=== PATIENT | female | born 1935 | race Caucasian/White ===

== ENCOUNTER 2017-06-12 15:46 | Inpatient (IN) | payer MEDICARE, OTHER ==
[2017-06-12] MEDS ORDERED: NS 0.9% 1000 ML* 1,000 ML IV ONE (15:49)
--- NOTE | 2017-06-12 16:07 | RAD ---
INDICATION: Confusion and slurred speech COMPARISON: None. TECHNIQUE: Contiguous axial sections of the brain were obtained from the skull base to the vertex without contrast. FINDINGS: The ventricles, cisterns and sulci exhibit mild involutional changes. There is mild to moderate periventricular and subcortical white matter hypoattenuation most consistent with chronic microvascular disease in a patient this age. There is potentially loss of wadsworth-white matter differentiation involving the right temporoparietal lobe (image 14 of 32). Elsewhere the wadsworth-white matter differentiation is adequately maintained and there is no sulcal effacement. No significant focal abnormality or mass effect is present. There is no evidence for intracranial hemorrhage. No significant focal osseous abnormality is present. The visualized portion of the paranasal sinuses and mastoid air cells appear clear. IMPRESSION: 1. No acute intracranial hemorrhage identified. 2. Potential loss of wadsworth-white matter differentiation at the right temporoparietal lobe. Without prior brain imaging for comparison determination of chronicity on a noncontrast CT of the brain is limited. 3. Additional age-appropriate chronic findings described above. Findings were reported Dr. Johnson over the telephone at 1603 hours on June 12, 2017
[2017-06-12] MEDS ORDERED: Labetalol IV* 5 MG/ML 20 ML VIAL IV PUSH ONE ×3 (16:11→19:19)
[2017-06-12 16:18] LABS: Hematocrit 28 % (35-47); Mean Corpuscular HGB Conc 33 g/dl (31-36); Mean Corpuscular Hemoglobin 33 pg (27-31); Mean Corpuscular Volume 102 fL (80-97); Mean Platelet Volume 7 um3 (7.4-10.4); Red Blood Count 2.71 10^6/ul (4.0-5.4); Red Cell Distribution Width 15 % (10.5-15); White Blood Count 7.8 10^3/ul (3.5-10.8)
[2017-06-12 16:32] LABS: Albumin 3.6 g/dL (3.2-5.2); EGFR African American 82.8 (>60); EGFR Non-African American 64.4 (>60); Globulin 2.7 g/dL (2-4); Potassium 4.4 mmol/L (3.5-5.0); Total Bilirubin 0.2 mg/dL (0.2-1.0); Total Protein 6.3 g/dL (6.4-8.9)
[2017-06-12 16:34] LABS: Troponin I 0.03 ng/mL (<0.04)
[2017-06-12] MEDS ORDERED: Alteplase* 100 MG VIAL IV ONE ×2 (16:45)
[2017-06-12] MEDS ORDERED: Iohexol 350* (CONTRAST) 500 ML MDV IV ONE (17:06)
--- NOTE | 2017-06-12 17:20 | RAD ---
INDICATION: Acute neurologic changes COMPARISON: None. TECHNIQUE: Single AP portable view of the chest was obtained. FINDINGS: Image quality is compromised due to the relative inferiority of a portable chest x-ray. The heart and mediastinum exhibit normal size and contour. There is faint calcification overlying the arch of the aorta. The lungs appear hyperaerated and the AP view. Otherwise the lungs are grossly clear. There is no evidence of a large pleural effusion. Visualized bones are normal for the patient's age. IMPRESSION: Appearance of the lungs is consistent with chronic obstructive pulmonary disease without radiographically acute cardiopulmonary abnormality.
--- NOTE | 2017-06-12 17:56 | RAD ---
CPT II: CPT II Codes: 3100F INDICATION: Left-sided weakness and difficulty was each COMPARISON: Same day CT of the brain TECHNIQUE: A CT angiogram of the head and neck was performed with 80 cc of Omnipaque 350. Contiguous axial sections were obtained from the thoracic inlet through the [place]. Images were reconstructed in the sagittal, coronal planes and in a 3-D volume rendered format. The distal cervical internal carotid artery diameter is used as the denominater for stenosis measurement. CTA NECK: There are severe calcified atherosclerosis at the arch of the aorta and the origins of the branch arteries. The common and internal carotid arteries are patent without hemodynamically significant stenosis. Surgical material is seen overlying the bilateral carotid bulbs consistent with the patient's reported history of carotid endarterectomies. Right: Immediately below the bifurcation the common carotid artery measures 7 mm in diameter and the internal carotid artery measures 7 mm in diameter above the bifurcation yielding 0% degree stenosis. Left: Immediately below the bifurcation the common carotid artery measures 6 mm in diameter and the internal carotid artery measures 6 mm in diameter above the bifurcation yielding 0% degree stenosis. The vertebral arteries are patent without gross abnormality. The right vertebral artery is diminutive relative to the left but retains patency throughout its entire length. CTA of the brain: The internal carotid, anterior and middle cerebral arteries appear are patent without high grade stenosis or occlusion. The vertebral, basilar and posterior cerebral arteries appear patent without high grade stenosis or occlusion. The left posterior communicating artery appears to be absent causing the [place] to be incomplete. No focal luminal filling defect, aneurysm or vascular malformation is seen. The lung apices exhibit advanced centrilobular emphysematous changes. IMPRESSION: 1. No hemodynamically significant stenosis at either carotid bulb status post carotid endarterectomies. 2. No focal filling defect in the arterial vasculature of the head and neck.
[2017-06-12 18:51] LABS: Urine Bacteria Absent (Absent); Urine Bilirubin Negative (Negative); Urine Glucose Negative (Negative); Urine Nitrite Negative (Negative)
--- NOTE | 2017-06-12 18:55 | RAD ---
INDICATION: Left-sided weakness and difficulty with speech. COMPARISON: Same day CT of the brain acquired at 1547 hours TECHNIQUE: Contiguous axial sections of the brain were obtained from the skull base to the vertex without contrast. FINDINGS: The ventricles, cisterns and sulci exhibit mild involutional changes. Similar to the previous CT of the brain, there is loss of wadsworth-white matter differentiation at the right temporoparietal lobe. Immediately external to the right temporal lobe there is an irregular hypodense area measuring 12 mm in greatest axial dimension, previously 10 mm. According to the patient's clinical presentation and now with a prior head CT with comparison the potential for extra-axial hemorrhage is considered. No significant focal osseous abnormality is present. The visualized portion of the paranasal sinuses and mastoid air cells appear clear. IMPRESSION: Again seen is loss of wadsworth-white matter differentiation at the right temporoparietal lobe similar in appearance to the previous CT of the brain. Since the prior CT there has been enlargement of a hyperdense subdural area measuring 12 mm in greatest axial dimension, previously 10 mm. On the prior CT examination it appeared this density was retained cortex as part of an evolving infarction, but the increase in size of the hyperattenuation now with 2 CTs to compare is concerning for extra-axial hemorrhage. Findings were discussed with Saturnino Johnson over the telephone at 1840 hours on June 12, 2017.
--- NOTE | 2017-06-12 19:28 | ED ---
Jannie Reece Auryana, scribed for Saturnino Johnson MD on 06/12/17 at 1552 . Neurological HPI - HPI Summary HPI Summary: 81 year old female presents with possible stroke starting this afternoon. Per EMS, patient was getting the mail and paper today when she dropped the paper/ mail and called for her tenant. EMS received the call at 14:40. Patient reports left sided facial droop and left sided weakness but on EMS arrival, report weakness and droop not present but that she did have difficult with speech. Patient denies any blurry vision, headache, chest pain or any SOB. She is on ASA and Plavix. PMHx is significant for TIA (1 year ago), and carotid endarterectomy x2. No history of DM- glucose 117 on arrival via finger stick. - History of Current Complaint Stated Complaint: STROKE Time Seen by Provider: 06/12/17 15:48 Last Known Well Date: 06/12/17 14:40 Hx Obtained From: Patient, EMS Hx Last Menstrual Period: n/a Onset/Duration: Sudden Onset, Started hours ago Timing: Constant Onset Severity: Moderate Current Severity: Moderate Neurological Deficit Location: Facial, LUE, LLE Associated Signs and Symptoms: Positive: Weakness, Impaired Speech. Negative: Visual Changes, Headache, Chest Pain, Shortness of Breath Similar Episode/Dx as: history of TIA Related Hx: ASA - Allergy/Home Medications Allergies/Adverse Reactions: Allergies Allergy/AdvReac Type Severity Reaction Status Date / Time No Known Allergies Allergy Verified 06/12/17 16:03 PMH/Surg Hx/FS Hx/Imm Hx Neurological History: Reports: Hx Transient Ischemic Attacks (TIA) - Surgical History Surgery Procedure, Year, and Place: carotid endarterectomy x2 - Family History Known Family History: Positive: Cardiac Disease, Diabetes, Other - stroke - father at 63; CHF Negative: Hypertension - Social History Occupation: Retired Alcohol Use: None Hx Substance Use: No Substance Use Type: Reports: None Hx Tobacco Use: No Smoking Status (MU): Never Smoked Tobacco Review of Systems Constitutional: Negative Negative: Fever Eyes: Negative Negative: Blurred Vision, Diplopia ENT: Negative Cardiovascular: Negative Negative: Chest Pain Respiratory: Negative Negative: Shortness Of Breath Gastrointestinal: Negative Genitourinary: Negative Musculoskeletal: Negative Skin: Negative Neurological: Other - left sided facial droop and left sided weakness Positive: Slurred Speech - speech difficulties. Negative: Headache Psychological: Normal All Other Systems Reviewed And Are Negative: Yes Physical Exam - Summary Physical Exam Summary: The patient is well-nourished in no acute distress and in no acute pain. The skin is warm and dry and skin color reflects adequate perfusion. HEENT: The head is normocephalic and atraumatic. The pupils are equal and reactive. The conjunctivae are clear and without drainage. Nares are patent and without drainage. Mouth reveals moist mucous membranes and the throat is without erythema and exudate. The external ears are intact. The ear canals are patent and without drainage. The tympanic membranes are intact. There is left sided facial droop. No ptosis present. Neck is supple with full range of motion and non-tender. There are no carotid bruits. There is no neck vein distension. Respiratory: Chest is non-tender. Lungs are clear to auscultation and breath sounds are symmetrical and equal. Cardiovascular: Heart is regular rate and rhythm. There is no murmur or rub auscultated. There is no peripheral edema and pulses are symmetrical and equal. Abdomen: The abdomen is soft and non-tender. There are normal bowel sounds heard in all four quadrants and there is no organomegaly palpated. Musculoskeletal: There is no back pain noted. Extremities are non-tender with full range of motion. There is good capillary refill. There is no peripheral edema or calf tenderness elicited. Neurological: Patient is alert and oriented to person, place and time. The patient has motor weakness in the left upper extremity > right upper extremity. There is a (+) babinski on the left and (+) pronator drift on the left. Heel to toe is normal. Finger to nose is slightly off on the left. Deep tendon reflexes are symmetrical and equal in all four extremities. SEE NIH SCALE FOR FURTHER ASSESSMENT. Psychiatric: The patient has an appropriate affect and does not exhibit any anxiety or depression. Triage Information Reviewed: Yes Vital Signs On Initial Exam: Initial Vitals Temp Pulse Resp BP Pulse Ox 99.6 F 81 18 206/66 99 06/12/17 15:55 06/12/17 15:55 06/12/17 15:55 06/12/17 15:55 06/12/17 15:55 Vital Signs Reviewed: Yes Diagnostics - Vital Signs Vital Signs Temp Pulse Resp BP Pulse Ox 06/12/17 18:57 57 06/12/17 18:50 55 18 172/47 98 06/12/17 18:45 57 19 97 06/12/17 18:40 54 19 172/53 95 06/12/17 18:31 51 19 92 06/12/17 18:30 175/51 06/12/17 18:27 53 17 99 06/12/17 18:20 159/41 06/12/17 18:15 53 19 97 06/12/17 18:10 55 17 173/34 98 06/12/17 18:00 57 18 156/33 96 06/12/17 17:50 56 21 152/81 97 06/12/17 17:45 64 18 95 06/12/17 17:40 65 20 132/107 94 06/12/17 17:33 19 06/12/17 17:30 22 163/77 06/12/17 17:15 17 06/12/17 17:10 16 166/43 06/12/17 17:00 14 158/47 06/12/17 16:50 21 189/52 06/12/17 16:46 15 175/83 06/12/17 16:45 18 06/12/17 16:40 59 13 184/64 98 06/12/17 16:20 19 06/12/17 16:18 17 198/64 06/12/17 16:08 19 194/50 06/12/17 16:04 55 15 206/66 94 06/12/17 16:03 17 06/12/17 15:55 99.6 F 81 18 206/66 99 - Laboratory Lab Results: Lab Results 06/12/17 06/12/17 06/12/17 Range/Units 16:09 16:09 16:09 WBC 7.8 (3.5-10.8) 10^3/ul RBC 2.71 L (4.0-5.4) 10^6/ul Hgb 9.0 L (12.0-16.0) g/dl Hct 28 L (35-47) % MCV 102 H (80-97) fL MCH 33 H (27-31) pg MCHC 33 (31-36) g/dl RDW 15 (10.5-15) % Plt Count 338 (150-450) 10^3/ul MPV 7 L (7.4-10.4) um3 Neut % (Auto) 77.1 (38-83) % Lymph % (Auto) 10.5 L (25-47) % [place] % (Auto) 9.6 H (1-9) % Eos % (Auto) 2.1 (0-6) % Baso % (Auto) 0.7 (0-2) % Absolute Neuts (auto) 6.0 (1.5-7.7) 10^3/ul Absolute Lymphs (auto) 0.8 L (1.0-4.8) 10^3/ul Absolute Monos (auto) 0.8 (0-0.8) 10^3/ul Absolute Eos (auto) 0.2 (0-0.6) 10^3/ul Absolute Basos (auto) 0.1 (0-0.2) 10^3/ul Absolute Nucleated RBC 0 10^3/ul Nucleated RBC % 0 INR (Anticoag Therapy) 0.94 (0.89-1.11) APTT 26.0 (26.0-36.3) seconds Sodium 134 (133-145) mmol/L Potassium 4.4 (3.5-5.0) mmol/L Chloride 103 (101-111) mmol/L Carbon Dioxide 25 (22-32) mmol/L Anion Gap 6 (2-11) mmol/L BUN 17 (6-24) mg/dL Creatinine 0.85 (0.51-0.95) mg/dL Est GFR ( Amer) 82.8 (>60) Est GFR (Non-Af Amer) 64.4 (>60) BUN/Creatinine Ratio 20.0 (8-20) Glucose 91 (70-100) mg/dL Lactic Acid (0.5-2.0) mmol/L Calcium 9.0 (8.6-10.3) mg/dL Total Bilirubin 0.20 (0.2-1.0) mg/dL AST 23 (13-39) U/L ALT 15 (7-52) U/L Alkaline Phosphatase 59 (34-104) U/L Troponin I 0.03 (<0.04) ng/mL Total Protein 6.3 L (6.4-8.9) g/dL Albumin 3.6 (3.2-5.2) g/dL Globulin 2.7 (2-4) g/dL Albumin/Globulin Ratio 1.3 (1-3) Triglycerides 80 mg/dL Cholesterol 130 mg/dL LDL Cholesterol 70 mg/dL HDL Cholesterol 44.0 mg/dL Urine Color Urine Appearance Urine pH (5-9) Ur Specific [place] (1.010-1.030) Urine Protein (Negative) Urine Ketones (Negative) Urine Blood (Negative) Urine Nitrate (Negative) Urine Bilirubin (Negative) Urine Urobilinogen (Negative) Ur Leukocyte Esterase (Negative) Urine WBC (Auto) (Absent) Urine RBC (Auto) (Absent) Urine Bacteria (Absent) Urine Glucose (Negative) Urine Ascorbic Acid (Negative) Blood Type Antibody Screen 06/12/17 06/12/17 06/12/17 Range/Units 16:09 16:09 18:37 WBC (3.5-10.8) 10^3/ul RBC (4.0-5.4) 10^6/ul Hgb (12.0-16.0) g/dl Hct (35-47) % MCV (80-97) fL MCH (27-31) pg MCHC (31-36) g/dl RDW (10.5-15) % Plt Count (150-450) 10^3/ul MPV (7.4-10.4) um3 Neut % (Auto) (38-83) % Lymph % (Auto) (25-47) % [place] % (Auto) (1-9) % Eos % (Auto) (0-6) % Baso % (Auto) (0-2) % Absolute Neuts (auto) (1.5-7.7) 10^3/ul Absolute Lymphs (auto) (1.0-4.8) 10^3/ul Absolute Monos (auto) (0-0.8) 10^3/ul Absolute Eos (auto) (0-0.6) 10^3/ul Absolute Basos (auto) (0-0.2) 10^3/ul Absolute Nucleated RBC 10^3/ul Nucleated RBC % INR (Anticoag Therapy) (0.89-1.11) APTT (26.0-36.3) seconds Sodium (133-145) mmol/L Potassium (3.5-5.0) mmol/L Chloride (101-111) mmol/L Carbon Dioxide (22-32) mmol/L Anion Gap (2-11) mmol/L BUN (6-24) mg/dL Creatinine (0.51-0.95) mg/dL Est GFR ( Amer) (>60) Est GFR (Non-Af Amer) (>60) BUN/Creatinine Ratio (8-20) Glucose (70-100) mg/dL Lactic Acid 0.8 (0.5-2.0) mmol/L Calcium (8.6-10.3) mg/dL Total Bilirubin (0.2-1.0) mg/dL AST (13-39) U/L ALT (7-52) U/L Alkaline Phosphatase (34-104) U/L Troponin I (<0.04) ng/mL Total Protein (6.4-8.9) g/dL Albumin (3.2-5.2) g/dL Globulin (2-4) g/dL Albumin/Globulin Ratio (1-3) Triglycerides mg/dL Cholesterol mg/dL LDL Cholesterol mg/dL HDL Cholesterol mg/dL Urine Color Yellow Urine Appearance Clear Urine pH 7.0 (5-9) Ur Specific [place] 1.005 L (1.010-1.030) Urine Protein Negative (Negative) Urine Ketones Negative (Negative) Urine Blood Negative (Negative) Urine Nitrate Negative (Negative) Urine Bilirubin Negative (Negative) Urine Urobilinogen Negative (Negative) Ur Leukocyte Esterase 2+ H (Negative) Urine WBC (Auto) 2+(11-20/hpf) H (Absent) Urine RBC (Auto) Absent (Absent) Urine Bacteria Absent (Absent) Urine Glucose Negative (Negative) Urine Ascorbic Acid * H (Negative) Blood Type B Positive Antibody Screen Negative Result Diagrams: 06/12/17 16:09 06/12/17 16:09 Lab Statement: Any lab studies that have been ordered have been reviewed, and results considered in the medical decision making process. - Radiology CXR Xray Interpretation: Positive (See Comments) - IMPRESSION: Appearance of the lungs is consistent with chronic obstructive pulmonary disease without radiographically acute cardiopulmonary abnormality. Radiology Interpretation Completed By: Radiologist - CT BRAIN CT Interpretation: Positive (See Comments) - IMPRESSION: 1. No acute intracranial hemorrhage identified. 2. Potential loss of wadsworth-white matter differentiation at the right temporoparietal lobe. Without prior brain imaging for comparison determination of chronicity on a noncontrast CT of the brain is limited. 3. Additional age-appropriate chronic findings described above. Findings were reported Dr. Johnson over the telephone at 1603 hours on June 12, 2017 CT Interpretation Completed By: Radiologist CTA HEAD/NECK CT Interpretation: Positive (See Comments) CT Interpretation Completed By: Radiologist BRAIN CT Interpretation: Positive (See Comments) - IMPRESSION: Again seen is loss of wadsworth-white matter differentiation at the right temporoparietal lobe similar in appearance to the previous CT of the brain. Since the prior CT there has been enlargement of a hyperdense subdural area measuring 12 mm in greatest axial dimension, previously 10 mm. On the prior CT examination it appeared this density was retained cortex as part of an evolving infarction, but the increase in size of the hyperattenuation now with 2 CTs to compare is concerning for extra-axial hemorrhage. Findings were discussed with Saturnino Johnson over the telephone at 1840 hours on June 12, 2017. CT Interpretation Completed By: Radiologist - EKG 16:07 EKG Interpretation: sinus bradycardia @ 58 bpm, no ST elevation, no STEMI. NIH Scale - NIH Scale Level of Consciousness: Alert/Keenly Responsive Ask Patient the Month and His/Her Age: Both Correct Ask Pt to Open/Close Eyes and Waistline Joiner Overlock/Release Non-Paretic Hand: Both Correctly Best Gaze (Only Horizontal Eye Movement): Normal Visual Field Testing: No Visual Loss Facial Paresis-Pt to Smile & Close Eyes or Grimace Symmetry: Minor Paralysis Motor Function - Right Arm: No Drift-Holds 10 Seconds Motor Function - Left Arm: Drifts LT 10 seconds Motor Function - Right Leg: No Drift-Holds 10 Seconds Motor Function - Left Leg: Drifts LT 10 seconds Limb Ataxia-Must be out of Proportion to Weakness Present: Present in One Limb Sensory (Use Pinprick to Test Arms/Legs/Trunk/Face): Normal Best Language (Describe Picture, Name Items): Some Loss Dysarthria (Read Several Words): Slurs Some Words Extinction and Inattention: No Abnormality Total Score: 6 Re-Evaluation - Re-Evaluation First Eval Re-Evaluation Time: 17:45 Change: Worse Comment: Nurse recommended a re-evaluation of the patient due to concerns of worsening symptoms. tPa is infusing with pending head CTA. Patient has increased lethargy and speech is more slurred. Her blood pressure has decreased and her heart rate has also decreased. The patient has more difficulty picking up the left arm and left leg with increasing left arm weakness. Patient denies any headache or any visual changes. Course/Dx - Course Assessment/Plan: 81 year old female presents with possible stroke starting this afternoon. Per EMS, patient was getting the mail and paper today when she dropped the paper/mail and called for her tenant. EMS received the call at 14: 40. Patient reports left sided facial droop and left sided weakness but on EMS arrival, report weakness and droop not present but that she did have difficult with speech. Patient denies any blurry vision, headache, chest pain or any SOB. She is on ASA and Plavix. PMHx is significant for TIA (1 year ago), and bilateral carotid endarterectomy. No history of DM- glucose 117 on arrival via finger stick. Rama lemons called in the field at 15:13. Dr. Argueta was consulted and advised to consult [facility] in [place]. [facility] telestroke center consulted at 16:06. Patient arrived to ED at 15:43 and was evaluated for possible stroke. Rama lemons was called at 15:45 in the ED and patient was sent to CT for imaging. EKG shows sinus bradycardia @ 58 bpm, no ST elevation, no STEMI. Blood work shows RBC 2.71, Hgb 9.0, Hct 28, INR 0.94 , APTT 26.0, Total protein 6.3, troponin 0.03, lactic acid 0.8. Normal triglycerides and cholesterol. CXR IMPRESSION: Appearance of the lungs is consistent with chronic obstructive pulmonary. disease without radiographically acute cardiopulmonary abnormality. CT BRAIN - IMPRESSION: 1. No acute intracranial hemorrhage identified. 2. Potential loss of wadsworth-white matter differentiation at the right temporoparietal lobe. Without prior brain imaging for comparison determination of chronicity on a noncontrast CT. of the brain is limited. 3. Additional age-appropriate chronic findings described above. Findings were reported Dr. Johnson over the telephone at 1603 hours on June 12, 2017. Dr. Bernal (16:07) recommends CTA head/neck and tPa. tPa was given. Nurse recommended a re-evaluation (15:45) of the patient due to concerns of worsening symptoms. tPa is infusing with pending head CTA. Patient has increased lethargy and speech is more slurred. Her blood pressure has decreased and her heart rate has also decreased. The patient has more difficulty picking up the left arm and left leg with increasing left arm weakness. Patient denies any headache or any visual changes. UA shows leukocyte esterase 2+, and 2+ WBC 2+. CTA head/necK IMPRESSION: 1. No hemodynamically significant stenosis at either carotid bulb status post carotid. endarterectomies. 2. No focal filling defect in the arterial vasculature of the head and neck. Dr. Bernal ( 18:11) was consulted on the results of the CTA and he is concerned about a bleed. He recommended CT brain while lying flat, give IV fluids, and will consult again after the brain CT. Brain CT - IMPRESSION: Again seen is loss of wadsworth-white matter differentiation at the right temporoparietal lobe similar in appearance to the previous CT of the brain. Since the prior CT there has been enlargement of a hyperdense subdural area measuring 12 mm in greatest axial dimension, previously 10 mm. On the prior CT examination it appeared this density was retained cortex as part of an evolving infarction, but the increase in size of the hyperattenuation now with 2 CTs to compare is concerning for extra-axial hemorrhage. Findings were discussed with Saturnino Johnson over the telephone at 1840 hours on June 12, 2017. Patients speech has improved per nurses report. Dr. Bernal (18:55) consulted again - He does not see any blood on the CT. He recommends admission to [facility] [place] [facility] and reports that he has faxed a consult over to [facility] [place]. He recommends that if Dr. Argueta has any questions, Dr. Argueta may text him. Patient is agreeable to admission. Dx: right CVA, thrombolytic therapy, hypertension. 100 minutes of CC time. case was discussed Dr. Black, hospitalist, ammonia box operator who was concerned that the pt might have a bleed post TPA and there was no neurological coverage. Clinically , the pt's symptoms had improved. the case was discussed with Dr. Argueta who will eview the CT, discuss the case with Dr. Bernal and alutiiq back with Dr. Madrid. - Differential Dx Differential Diagnoses Neuro: Positive: Cerebrovascular Accident, Transient Ischemic Attack - Diagnoses Provider Diagnoses: Right-sided cerebrovascular accident (CVA), THROMBOLYTIC THERAPY, Hypertension During the Visit The Following Alert/Code Occurred: Code [place] - 15:45 - Physician Notifications Discussed Care Of Patient With: Osman Bernal Time Discussed With Above Provider: 16:07 - recommends CTA head/neck and tPa Instructed by Provider To: Admit As Inpatient - Critical Care Time Critical Care Time: 75-104 min - 100 minutes of critcal care time Discharge - Discharge Plan Condition: Critical Disposition: ADMITTED TO [facility] The documentation as recorded by the Jannie storey Auryana accurately reflects the service I personally performed and the decisions made by me, Saturnino Johnson MD.
[2017-06-12] MEDS ORDERED: Acetaminophen TAB* 325 MG PO PRN (20:12)
[2017-06-12] MEDS ORDERED: Ondansetron INJ* 2 MG/ML VIAL IV PRN (20:12)
[2017-06-12] MEDS ORDERED: Atorvastatin* 80 MG TAB PO ONE (20:20)
[2017-06-12] MEDS: NS 0.9% 1000 ML* 1,000 ML IV SCH (22:06)
[2017-06-12] MEDS: Docusate CAP* 100 MG PO SCH (22:15)
--- NOTE | 2017-06-13 04:06 | HP ---
CC: Dr. Deena Sullivan; Dr. Bernal; Dr. Argueta * HISTORY AND PHYSICAL: DATE OF ADMISSION: 06/12/17 PRIMARY CARE PROVIDER: Dr. Deena Sullivan. ATTENDING PHYSICIAN WHILE IN THE HOSPITAL: Amilcar Black MD * (report dictated by Felipe Harrington NP). CONSULTING NEUROLOGISTS: Dr. Bernal and Dr. Argueta. CHIEF COMPLAINT: 1. Facial droop. 2. Left-sided weakness. HISTORY OF PRESENT ILLNESS: Mrs. Dan is an 81-year-old female patient. She has a history of carotid artery disease, hyperlipidemia, history of smoking, anemia, and a history of TIA in the past. She has had carotid endarterectomy about a year and a half ago. She comes in today stating that around 2:30, she was walking back from her mailbox. She noticed that she was having trouble turning the doorknob to the left side. She felt like her gait was unsteady. She felt dizzy and she was concerned because she was very weak, she dropped her mail. She felt like she was going to fall. She yelled out for help. Her tenant who lives above her was concerned immediately and called 911. There was concern at that time that she had a facial droop. The patient does state that she felt that her speech was slurred and she was having difficulties. She also noticed that she got up and was sitting on the bench near her door to go on to use the restroom and she had trouble taking her pants down. The patient states that she has been doing this for 80 plus years and this is first time she has had any difficulty and she noticed it was really hard for her to get the left side down. EMS was called. EMS was concerned for CVA. They brought her to the hospital. [facility] was called. She was given TPA. Because of this, the hospitalist service was asked to evaluate in admission. PAST MEDICAL HISTORY: Significant for: 1. TIA. 2. Carotid artery disease. 3. Hyperlipidemia. 4. Tobacco abuse. 5. Anemia. 6. History of TIA. PAST SURGICAL HISTORY: 1. She has had a carotid endarterectomy. 2. Cataract extraction. 3. Hysterectomy. MEDICATIONS: Home meds according to her include: 1. Plavix 75 mg daily. 2. Aspirin 81 mg daily. 3. Lipitor 80 mg p.o. q.p.m. ALLERGIES: To medications include no known drug allergies. FAMILY HISTORY: Her mother had a history of CHF. Father had a history of CVA and ID. SOCIAL HISTORY: She is about a half a pack a day smoker for about 50 plus years. She rarely drink alcohol. She lives alone. Surrogate decision maker is her jermaine Donald. REVIEW OF SYSTEMS: There is no documented fever. She denied having any significant weight change. There was no double vision. She denies having any ear discharge. There is no rhinorrhea. No sore throat. No thyroid enlargement. She denies having any chest pain. There was no orthopnea. No nocturnal dyspnea. There was no abdominal pain. There was no nausea, no vomiting. There is no dysuria. No frequency. There is no seizure. No loss of consciousness. No pruritus and no skin ulcerations. Review of 14 systems was completed, all others negative. PHYSICAL EXAMINATION GENERAL: At this time, Mrs. Dan is an 81-year-old female. She appears to be well nourished, well developed. She does not appear to be in any acute respiratory distress. VITAL SIGNS: Blood pressure 173/76 with a pulse 57, respirations 20, O2 sat 96% , and temperature 99.6. HEENT: Head is atraumatic, normocephalic. Eyes: EOMs are intact. Sclerae anicteric and not pale. Throat: Oral mucosa appears to be moist. No oropharyngeal erythema. NECK: Supple. LUNGS: Clear to auscultation bilaterally. No wheezes, rales, or rhonchi. HEART: Sounds S1, S2. Regular rate and rhythm. No murmurs, rubs, or gallops. ABDOMEN: Soft. It was flat, nontender. Bowel sounds present. EXTREMITIES: Pulses are 2+ throughout. She is able to move all 4 extremities now with 5/5 strength. NEUROLOGIC: She is awake, she is alert. She has a slight left-sided facial droop. Her speech is now clear. Tongue is midline. Nlgqta-[id number] intact bilaterally. Spwd-dw-woyn intact bilaterally. Cranial nerves II through XII were intact. Visual morrow were intact. EOMs were intact. She had no gross obvious focal deficits at this point with the exception she has a little bit of a facial droop on the left side. SKIN: Grossly intact. LABORATORY DATA/DIAGNOSTIC STUDIES: The labs today revealed WBC of 7.8, RBC of 2.71, hemoglobin 9.0, hematocrit 28, platelet count of 338,000. The INR was 0.94, PTT 26.0. Sodium is 134, potassium 4.4, chloride 103, bicarb 25, BUN 17, creatinine of 0.85, glucose 91. Lactic 0.8. Calcium 9.0, total bili 0.2, AST 23, ALT 15, alk phos 59. Troponin 0.03. Albumin was 3.6. Her urine showed low specific gravity, 2+ leukocyte esterase, 2+ WBC. She did have multiple imaging starting out with an initial brain CT, which impression read, no acute intracranial hemorrhage identified, potential loss of estrada and white matter differentiation at the right temporoparietal lobe without prior brain imaging for comparison. Determination of chronicity on the non- contrast CT of the brain is limited. Age-appropriate chronic findings are as described. She had a chest x-ray obtained today, which revealed appearance of the lungs consistent with COPD without radiographic evidence of acute cardiopulmonary abnormality. There was a CTA of the head and neck, which showed no hemodynamically significant stenosis of either carotid bulb, status post carotid endarterectomies. No focal filling defects in the arterial vasculature of the head and neck. She had a EKG obtained today as well, which revealed a sinus bradycardia with rate of 58. No ST elevations or T wave inversions were noted. No previous for comparison. Repeat brain CT was obtained at 181 for logical decline, which showed again loss of estrada white matter differentiation at the right temporoparietal lobe, similar to appearance on previous CT of the brain. Since the prior CT, there has been enlargement of the hyperdense subdural area measuring 12 mm in the greatest axial dimension, previously [address], it appeared that this density was retained but with increased size of the hyperattenuation now with 2 CTs to compare concerning for extra-axial hemorrhage. Old medical records reviewed. ASSESSMENT AND PLAN: Mrs. Dan is an 81-year-old female patient presented to the ER with complaints of facial droop, slurring of the words, and left-sided weakness. Evaluation is concerning for cerebrovascular accident. She will be admitted under inpatient status for: 1. Cerebrovascular accident. The patient is status post TPA. The repeat CT of the brain was reviewed by our neurologist and Neurology in [place] and it was felt that this was not a bleed. The patient at this point will be admitted to our ICU under TPA precautions. She will keep the head of bed at 20 degrees or less. We will get a speech evaluation and a bedside swallow eval. If she passes, she could proceed to clear liquid diet. She will be on bed rest for 24 hours. She will get a repeat CT of the brain tomorrow and an MRI and an echo tomorrow. I will repeat the lipid panel on fasting basis tomorrow morning. In addition to this, we also will get an A1c. We will start her on high dose statin. We are holding on the aspirin and Plavix currently and Neurology will be following. We will get frequent neuro checks and she will be placed on telemetry in the ICU. 2. History of transient ischemic attack. Again, at this point, statin therapy only. Holding on the aspirin and Plavix. 3. Anemia. We will follow her H and H closely, particularly in the setting of the recent TPA. 4. Hyperlipidemia. Continue statin therapy. 5. DVT prophylaxis. She did receive TPA. She will be placed on SCD's only. 6. Code status. She wishes to be a DNR. We will try to obtain a DNR. If not , we will fill one out. 7. Fluids, electrolytes, and nutrition. She is n.p.o. pending bedside swallow eval. If she does pass, she will proceed to a clear liquid diet. TIME SPENT: Time spent on the admission was approximately 70 minutes, greater than half the time was spent [id number] with the patient obtaining my history and physical, while the other half time was spent going over the plan of care with the patient and implementing the plan of care. I did discuss plan of care with my attending physician, Dr. Black; he is in agreement. FELIPE HARRINGTON NP [id number]/[facility] #: [id number] MTDBrittney
[2017-06-13 06:33] LABS: Hematocrit 24 % (35-47); Hemoglobin 7.8 g/dl (12.0-16.0); Mean Corpuscular HGB Conc 33 g/dl (31-36); Mean Corpuscular Hemoglobin 33 pg (27-31); Mean Corpuscular Volume 102 fL (80-97); Mean Platelet Volume 8 um3 (7.4-10.4); Red Blood Count 2.35 10^6/ul (4.0-5.4); Red Cell Distribution Width 15 % (10.5-15); White Blood Count 6.9 10^3/ul (3.5-10.8)
[2017-06-13 06:48] LABS: Albumin 2.8 g/dL (3.2-5.2); BUN/Creatinine Ratio 27.4 (8-20); Calcium 7.9 mg/dL (8.6-10.3); EGFR African American 119.1 (>60); EGFR Non-African American 92.6 (>60); Globulin 2.2 g/dL (2-4); Total Bilirubin 0.3 mg/dL (0.2-1.0)
[2017-06-13 06:56] LABS: Potassium 4.3 mmol/L (3.5-5.0)
--- NOTE | 2017-06-13 07:32 | PN ---
Subjective Date of Service: 06/13/17 Interval History: Ms. Dan is an 81 yo female who presented to the ED on 06/12 with concern for CVA. Patient reports hx of TIA one year ago and carotid endarterectomy x 2 and has been maintained on ASA and clopidogrel. Patient's symptoms occurred around 1430, when EMS was activated. She presented with left sided weakness and left sided facial droop. Patient reported dropping her mail and paper due to new weakness, as well as accompanying dizziness and ataxia. In the ED, patient was noted to have some difficulty with speech. The patient was evaluated under Code Estrada protocol and given TPA. This morning, the patient is alert and quite talkative. She denies GRANGER, dizziness , speech difficulties, CP, SOB, n/v. She is uncomfortable due to having to maintain bedrest. She states she is hungry. She does not feel like she has any residual weakness but cannot be sure because "I'm stuck here in bed." Telemetry: Sinus bradycardia 58 Family History: Unchanged from Admission Social History: Unchanged from Admission Past Medical History: Unchanged from Admission Objective Active Medications: Acetaminophen (Tylenol Tab*) 650 mg PO Q4H PRN Atorvastatin Calcium (Lipitor*) 80 mg PO 1700 CORTEZ Docusate Sodium (Colace Cap*) 100 mg PO BID CORTEZ Sodium Chloride (Ns 0.9% 1000 Ml*) 1,000 mls @ 75 mls/hr IV .per rate CORTEZ Ondansetron HCl (Zofran Inj*) 4 mg IV Q6H PRN Vital Signs 06/12/17 06/12/17 06/12/17 20:15 20:26 20:30 Temperature Pulse Rate 56 56 57 Respiratory 18 18 19 Rate Blood Pressure 183/59 195/55 (mmHg) O2 Sat by Pulse 96 97 95 Oximetry 06/12/17 06/12/17 06/12/17 20:40 20:45 20:50 Temperature Pulse Rate 50 51 51 Respiratory 18 18 18 Rate Blood Pressure 166/47 176/42 (mmHg) O2 Sat by Pulse 90 94 95 Oximetry 06/12/17 06/12/17 06/12/17 21:00 21:21 21:25 Temperature Pulse Rate 55 48 56 Respiratory 21 20 Rate Blood Pressure 173/49 180/73 (mmHg) O2 Sat by Pulse 95 97 93 Oximetry 0706/12/17 06/12/17 21:27 21:30 21:45 Temperature 98.9 F 98.9 F Pulse Rate 54 40 Respiratory 20 18 Rate Blood Pressure 184/52 164/55 (mmHg) O2 Sat by Pulse 94 92 Oximetry 06/12/17 06/12/17 06/12/17 22:00 22:15 22:30 Temperature Pulse Rate 48 48 48 Respiratory 19 21 16 Rate Blood Pressure 184/45 173/50 146/59 (mmHg) O2 Sat by Pulse 95 93 94 Oximetry 06/12/17 06/12/17 06/12/17 22:45 23:00 23:15 Temperature Pulse Rate 47 53 52 Respiratory 17 18 17 Rate Blood Pressure 171/56 165/115 163/42 (mmHg) O2 Sat by Pulse 95 94 93 Oximetry 06/12/17 06/12/17 06/13/17 23:30 23:45 00:00 Temperature Pulse Rate 52 51 53 Respiratory 17 18 15 Rate Blood Pressure 143/101 157/40 (mmHg) O2 Sat by Pulse 96 95 94 Oximetry 06/13/17 06/13/17 06/13/17 00:01 00:12 00:15 Temperature 98.8 F Pulse Rate 52 52 Respiratory 16 16 Rate Blood Pressure 170/39 162/40 (mmHg) O2 Sat by Pulse 93 94 Oximetry 06/13/17 06/13/17 06/13/17 00:30 00:45 01:00 Temperature Pulse Rate 53 51 52 Respiratory 15 12 15 Rate Blood Pressure 167/42 157/43 (mmHg) O2 Sat by Pulse 97 97 93 Oximetry 06/13/17 06/13/17 06/13/17 01:15 01:30 01:45 Temperature Pulse Rate 52 51 51 Respiratory 15 13 17 Rate Blood Pressure 157/41 167/64 148/34 (mmHg) O2 Sat by Pulse 93 94 94 Oximetry 06/13/17 06/13/17 06/13/17 02:00 02:15 02:30 Temperature Pulse Rate 50 51 51 Respiratory 14 12 15 Rate Blood Pressure 131/35 102/37 (mmHg) O2 Sat by Pulse 95 94 96 Oximetry 06/13/17 06/13/17 06/13/17 02:35 02:45 03:00 Temperature Pulse Rate 48 51 54 Respiratory 17 20 19 Rate Blood Pressure 134/75 148/37 128/58 (mmHg) O2 Sat by Pulse 94 94 97 Oximetry 06/13/17 06/13/17 06/13/17 03:15 03:30 03:45 Temperature Pulse Rate 47 46 48 Respiratory 18 15 20 Rate Blood Pressure 124/41 130/25 133/87 (mmHg) O2 Sat by Pulse 94 94 95 Oximetry 06/13/17 06/13/17 06/13/17 04:00 04:12 04:15 Temperature 99.6 F 99.6 F Pulse Rate 46 47 Respiratory 14 14 Rate Blood Pressure 126/48 99/40 (mmHg) O2 Sat by Pulse 93 94 Oximetry 06/13/17 06/13/17 06/13/17 04:24 04:30 04:34 Temperature Pulse Rate 46 45 Respiratory 15 16 15 Rate Blood Pressure 144/40 (mmHg) O2 Sat by Pulse 94 94 Oximetry 06/13/17 06/13/17 06/13/17 04:45 05:00 05:15 Temperature Pulse Rate 47 49 47 Respiratory 14 17 13 Rate Blood Pressure 145/42 (mmHg) O2 Sat by Pulse 94 95 94 Oximetry 06/13/17 06/13/17 06/13/17 05:30 05:45 06:00 Temperature Pulse Rate 47 48 46 Respiratory 14 15 14 Rate Blood Pressure 141/40 138/33 (mmHg) O2 Sat by Pulse 95 95 94 Oximetry 06/13/17 06:15 Temperature Pulse Rate 49 Respiratory 17 Rate Blood Pressure (mmHg) O2 Sat by Pulse 95 Oximetry Oxygen Devices in Use Now: None Appearance: Older female, lying in bed, in NAD Eyes: No Scleral Icterus, PERRLA Ears/Nose/Mouth/Throat: Clear Oropharnyx, - - oral mucosa appears dry and tacky Neck: NL Appearance and Movements; NL JVP Respiratory: Symmetrical Chest Expansion and Respiratory Effort, Clear to Auscultation Cardiovascular: NL Sounds; No Murmurs; No JVD, RRR - mildly bradycardic, No Edema Abdominal: NL Sounds; No Tenderness; No Distention Neurological: Alert and Oriented x 3, - - Mild left facial droop, cork compounder seem approximately equal in BUE, no pronator drift noted, finger to nose intact bilaterally, heel to mckenzie intact, PERRLA Lines/Tubes/Other Access: Clean, Dry and Intact Peripheral IV Result Diagrams: 06/13/17 11:51 07/30/17 06:20 Additional Lab and Data: Lab Results 06/12/17 06/12/17 06/12/17 Range/Units 16:09 16:09 16:09 WBC 7.8 (3.5-10.8) 10^3/ul RBC 2.71 L (4.0-5.4) 10^6/ul Hgb 9.0 L (12.0-16.0) g/dl Hct 28 L (35-47) % MCV 102 H (80-97) fL MCH 33 H (27-31) pg MCHC 33 (31-36) g/dl RDW 15 (10.5-15) % Plt Count 338 (150-450) 10^3/ul MPV 7 L (7.4-10.4) um3 Neut % (Auto) 77.1 (38-83) % Lymph % (Auto) 10.5 L (25-47) % [place] % (Auto) 9.6 H (1-9) % Eos % (Auto) 2.1 (0-6) % Baso % (Auto) 0.7 (0-2) % Absolute Neuts (auto) 6.0 (1.5-7.7) 10^3/ul Absolute Lymphs (auto) 0.8 L (1.0-4.8) 10^3/ul Absolute Monos (auto) 0.8 (0-0.8) 10^3/ul Absolute Eos (auto) 0.2 (0-0.6) 10^3/ul Absolute Basos (auto) 0.1 (0-0.2) 10^3/ul Absolute Nucleated RBC 0 10^3/ul Nucleated RBC % 0 INR (Anticoag Therapy) 0.94 (0.89-1.11) APTT 26.0 (26.0-36.3) seconds Sodium 134 (133-145) mmol/L Potassium 4.4 (3.5-5.0) mmol/L Chloride 103 (101-111) mmol/L Carbon Dioxide 25 (22-32) mmol/L Anion Gap 6 (2-11) mmol/L BUN 17 (6-24) mg/dL Creatinine 0.85 (0.51-0.95) mg/dL Est GFR ( Amer) 82.8 (>60) Est GFR (Non-Af Amer) 64.4 (>60) BUN/Creatinine Ratio 20.0 (8-20) Glucose 91 (70-100) mg/dL Lactic Acid (0.5-2.0) mmol/L Calcium 9.0 (8.6-10.3) mg/dL Total Bilirubin 0.20 (0.2-1.0) mg/dL AST 23 (13-39) U/L ALT 15 (7-52) U/L Alkaline Phosphatase 59 (34-104) U/L Troponin I 0.03 (<0.04) ng/mL Total Protein 6.3 L (6.4-8.9) g/dL Albumin 3.6 (3.2-5.2) g/dL Globulin 2.7 (2-4) g/dL Albumin/Globulin Ratio 1.3 (1-3) Triglycerides 80 mg/dL Cholesterol 130 mg/dL LDL Cholesterol 70 mg/dL HDL Cholesterol 44.0 mg/dL Urine Color Urine Appearance Urine pH (5-9) Ur Specific [place] (1.010-1.030) Urine Protein (Negative) Urine Ketones (Negative) Urine Blood (Negative) Urine Nitrate (Negative) Urine Bilirubin (Negative) Urine Urobilinogen (Negative) Ur Leukocyte Esterase (Negative) Urine WBC (Auto) (Absent) Urine RBC (Auto) (Absent) Urine Bacteria (Absent) Urine Glucose (Negative) Urine Ascorbic Acid (Negative) Blood Type Antibody Screen 06/12/17 06/12/17 06/12/17 Range/Units 16:09 16:09 18:37 WBC (3.5-10.8) 10^3/ul RBC (4.0-5.4) 10^6/ul Hgb (12.0-16.0) g/dl Hct (35-47) % MCV (80-97) fL MCH (27-31) pg MCHC (31-36) g/dl RDW (10.5-15) % Plt Count (150-450) 10^3/ul MPV (7.4-10.4) um3 Neut % (Auto) (38-83) % Lymph % (Auto) (25-47) % [place] % (Auto) (1-9) % Eos % (Auto) (0-6) % Baso % (Auto) (0-2) % Absolute Neuts (auto) (1.5-7.7) 10^3/ul Absolute Lymphs (auto) (1.0-4.8) 10^3/ul Absolute Monos (auto) (0-0.8) 10^3/ul Absolute Eos (auto) (0-0.6) 10^3/ul Absolute Basos (auto) (0-0.2) 10^3/ul Absolute Nucleated RBC 10^3/ul Nucleated RBC % INR (Anticoag Therapy) (0.89-1.11) APTT (26.0-36.3) seconds Sodium (133-145) mmol/L Potassium (3.5-5.0) mmol/L Chloride (101-111) mmol/L Carbon Dioxide (22-32) mmol/L Anion Gap (2-11) mmol/L BUN (6-24) mg/dL Creatinine (0.51-0.95) mg/dL Est GFR ( Amer) (>60) Est GFR (Non-Af Amer) (>60) BUN/Creatinine Ratio (8-20) Glucose (70-100) mg/dL Lactic Acid 0.8 (0.5-2.0) mmol/L Calcium (8.6-10.3) mg/dL Total Bilirubin (0.2-1.0) mg/dL AST (13-39) U/L ALT (7-52) U/L Alkaline Phosphatase (34-104) U/L Troponin I (<0.04) ng/mL Total Protein (6.4-8.9) g/dL Albumin (3.2-5.2) g/dL Globulin (2-4) g/dL Albumin/Globulin Ratio (1-3) Triglycerides mg/dL Cholesterol mg/dL LDL Cholesterol mg/dL HDL Cholesterol mg/dL Urine Color Yellow Urine Appearance Clear Urine pH 7.0 (5-9) Ur Specific [place] 1.005 L (1.010-1.030) Urine Protein Negative (Negative) Urine Ketones Negative (Negative) Urine Blood Negative (Negative) Urine Nitrate Negative (Negative) Urine Bilirubin Negative (Negative) Urine Urobilinogen Negative (Negative) Ur Leukocyte Esterase 2+ H (Negative) Urine WBC (Auto) 2+(11-20/hpf) H (Absent) Urine RBC (Auto) Absent (Absent) Urine Bacteria Absent (Absent) Urine Glucose Negative (Negative) Urine Ascorbic Acid * H (Negative) Blood Type B Positive Antibody Screen Negative Microbiology and Other Data: Microbiology 06/12/17 21:26 Nasal Screen MRSA (PCR)(RAQUEL) - Final Nasal Mrsa Negative Diagnostic Imaging: CT brain upon admission, IMPRESSION: 1. No acute intracranial hemorrhage identified. 2. Potential loss of estrada-white matter differentiation at the right temporoparietal lobe. Without prior brain imaging for comparison determination of chronicity on a noncontrast CT of the brain is limited. 3. Additional age-appropriate chronic findings described above. Follow up CT brain, IMPRESSION: Again seen is loss of estrada-white matter differentiation at the right temporoparietal lobe similar in appearance to the previous CT of the brain. Since the prior CT there has been enlargement of a hyperdense subdural area measuring 12 mm in greatest axial dimension, previously 10 mm. On the prior CT examination it appeared this density was retained cortex as part of an evolving infarction, but the increase in size of the hyperattenuation now with 2 CTs to compare is concerning for extra-axial hemorrhage. CTA Head/neck, IMPRESSION: 1. No hemodynamically significant stenosis at either carotid bulb status post carotid endarterectomies. 2. No focal filling defect in the arterial vasculature of the head and neck. CXR, IMPRESSION: Appearance of the lungs is consistent with chronic obstructive pulmonary disease without radiographically acute cardiopulmonary abnormality. Assess/Plan/Problems-Billing Assessment: Ms. Dan is an 81 yo female with a PMH of previous TIA, carotid endarterectomy , CAD, HLD, tobacco abuse, and anemia who presented to the ED on 06/12/17 with concern for left sided weakness and facial droop; patient was a Code Estrada for CVA and is s/p TPA. - Patient Problems (1) CVA (cerebral vascular accident) Code(s): I63.9 - CEREBRAL INFARCTION, UNSPECIFIED Comment: S/p TPA on 06/12 Presented with left sided weakness, facial droop, slurred speech Symptoms appear to be improved from yesterday CT brain showed potential involvement at right temporoparietal lobe and question of hemorrhage. Patient has no prior scans for comparsion. CTA head/neck shows no significant stenosis or focal filling defect. Echocardiogram, HgbA1c, MRI pending Patient needs 24 hour follow-up CT brain this afternoon Continue bedrest, NPO status, neuro checks Neurology following ASA, heparin and other anticoagulants on hold until 24 hours s/p TPA admin (2) HLD (hyperlipidemia) Code(s): E78.5 - HYPERLIPIDEMIA, UNSPECIFIED Comment: Continue atorvastatin (3) CAD (coronary artery disease) Code(s): I25.10 - ATHSCL HEART DISEASE OF [place] CORONARY ARTERY W/O ANG PCTRS Comment: ASA and clopidogrel on hold s/p TPA Continue statin (4) Tobacco abuse Code(s): Z72.0 - TOBACCO USE Comment: Smoking cessation education Patient advised to quit smoking. (5) Anemia Code(s): D64.9 - ANEMIA, UNSPECIFIED Comment: Hgb down to 7.8 (previously 9.0) Patient with hx of anemia (no previous labs to establish baseline) May be mild dilutional component but patient is s/p TPA administration Recheck HH this afternoon Patient is currently asymptomatic (6) History of TIAs Comment: Reported to have occurred in 2016 Also with hx of carotid endarterectomy x 2 ASA and clopidogrel held due to TPA (7) DVT prophylaxis Comment: SCDs Anticoagulation contraindicated due to TPA administration less 24 hours ago (8) DNR (do not resuscitate) Status and Disposition: Inpatient admission. Anticipate LOS >2 days for acute CVA with anticipated rehab needs.
[2017-06-13] MEDS: Docusate CAP* 100 MG PO SCH ×2 (09:18→21:27)
--- NOTE | 2017-06-13 12:07 | ECHO ---
Patient: RUKHSANA LINO [facility] Rec#: [id number] : 1935 Date: 06/13/2017 Age: 81y Height: 167.64 cm / 66.0 in Weight: 59.42 kg / 131.0 lbs Sex: F BSA: 1.67 Room#: ICU-5 Admit Date#: 06/12/2017 Type: Inpatient Referring: Felipe Harrington NP Reading: Oscar Ervin DO Activity Therapy Specialist: Becky Vick DIANA CC: Nate GROSS,Deena CC: Zafar Argueta MD Transthoracic Echocardiogram Indication: CVA BP: 138/33 HR: 55 Rhythm: NSR with PACs Findings History: Prior TIA,carotid disease,HLD,smoker,anemia. Technical Comments: The study quality is good. Completed at 1125. Left Ventricle: The left ventricular chamber size is normal. Global left ventricular wall motion and contractility are within normal limits. There is normal left ventricular systolic function. The estimated ejection fraction is 55-60%. Abnormal left ventricular diastolic function is observed. Left Atrium: The left atrium is moderately dilated. Right Ventricle: The right ventricular chamber size and systolic function are within normal limits. Right Atrium: The right atrium is mildly dilated. There is no patent foramen ovale visualized. A patent foramen ovale is not demonstrated with color Doppler and agitated contrast. Bubble study performed with and without valsalva Aortic Valve: The aortic valve is trileaflet. The aortic valve leaflets are mildly thickened.and mildly calcified There is evidence of aortic sclerosis without stenosis. There is mild aortic regurgitation. There is no evidence of aortic stenosis. Mitral Valve: The mitral valve leaflets are mildly thickened. There is mild mitral regurgitation. There is no evidence of mitral stenosis. Tricuspid Valve: The tricuspid valve leaflets are normal. There is trace to mild tricuspid regurgitation. There is evidence of moderate pulmonary hypertension. There is no tricuspid stenosis. Pulmonic Valve: The pulmonic valve appears normal. There is mild pulmonic regurgitation. There is no pulmonic stenosis. Pericardium: There is no significant pericardial effusion.Likely physiologic amount of pericardial fluid Aorta: There is no dilatation of the ascending aorta. There is no dilatation of the aortic arch. There is no dilation of the aortic root. Pulmonary Artery: The main pulmonary artery is not well visualized. Venous: The inferior vena cava is dilated. There is a greater than 50% respiratory change in the inferior vena cava dimension. Contrast: Normal saline was used as contrast for the bubble study. Intravenous contrast was used to help determine presence of intracardiac shunting. Conclusions The left ventricular chamber size is normal. Global left ventricular wall motion and contractility are within normal limits. There is normal left ventricular systolic function. The estimated ejection fraction is 55-60%. The left atrium is moderately dilated. The right ventricular chamber size and systolic function are within normal limits. The right atrium is mildly dilated. There is evidence of aortic sclerosis without stenosis. No more than mild valvular regurgitation noted. There is evidence of moderate pulmonary hypertension. Negative bubble study No prior studies available for comparison at time of interpretation Measurements Name Value Normal Range RVIDd (AP) 2D 2.5 cm (0.9 - 2.6) RVDdMajor (2D) 2.8 cm (2.2 - 4.4) RAd ISD 4CH 5.1 cm (3.4 - 4.9) RA (A4C)W 4.3 cm (2.9 - 4.6) IVSd (2D) 0.9 cm (0.6 - 1) LVPWd (2D) 0.9 cm (0.6 - 1) LVIDd (2D) 4.9 cm (3.6 - 5.4) LVIDs (2D) 3.3 cm - LV FS (2D) 32 % (25 - 45) Aortic Annulus 2 cm (1.4 - 2.6) Ao root diameter (2D) 3.1 cm (2.1 - 3.5) Ascending Ao 3.1 cm (2.1 - 3.4) Aortic arch 2.1 cm (1.8 - 3.4) LA dimension (AP) 2D 4.2 cm (2.3 - 3.8) LAd ISD 4CH 5.7 cm (2.9 - 5.3) LA ISD 4CH W 4.4 cm (2.5 - 4.5) Name Value Normal Range LA ESV SP 4CH (A/L) 76 ml - LA ESV SP 2CH (A/L) 69 ml - LA ESV BP (A/L) 73 ml - LA ESV BP (A/L) index 43.55 ml/m2 - LA ESV SP 4CH (MOD) 71 ml - LA ESV SP 2CH (MOD) 64 ml - Name Value Normal Range MV E-wave Vmax 1.2 m/sec - MV deceleration time 165 msec - MV A-wave Vmax 0.5 m/sec - MV E:A ratio 2.37 ratio - LV septal e' Vmax 0.06 m/sec - LV lateral e' Vmax 0.07 m/sec - LV E:e' septal ratio 20 ratio - LV E:e' lateral ratio 17.41 ratio - Name Value Normal Range AV Vmax 1.5 m/sec - AV VTI 41.7 cm - AV peak gradient 9.36 mmHg - AV mean gradient 3.66 mmHg - LVOT diameter 2.3 cm - LVOT Vmax 0.7 m/sec - LVOT VTI 19.18 cm - LVOT peak gradient 2.17 mmHg - LVOT mean gradient 0.95 mmHg - AR PHT 391 msec - AR peak gradient 71 mmHg - Name Value Normal Range TR Vmax 3.5 m/sec - TR peak gradient 55 mmHg - RAP 8 mmHg - RVSP 57 mmHg - IVC diameter 2.4 cm - Name Value Normal Range PV Vmax 0.8 m/sec - PV peak gradient 2.71 mmHg -
[2017-06-13 12:10] LABS: Hematocrit 25 % (35-47); Hemoglobin 7.9 g/dl (12.0-16.0)
--- NOTE | 2017-06-13 13:31 | RAD ---
HISTORY: The patient presented with strokelike symptoms the previous day and has subsequently demonstrated improvement. COMPARISONS: CT of the brain x2 dated June 12, 2017 TECHNIQUE: The following sequences were obtained of the head: Sagittal T1-weighted images, axial T2-weighted images, axial FLAIR images, axial susceptibility weighted images, axial T1-weighted images. Additionally, axial diffusion-weighted images were obtained with calculated apparent diffusion coefficients.. FINDINGS: DIFFUSION ABNORMALITIES: On the diffusion-weighted imaging there is a small focus measuring 4 mm at the posterior subinsular cortex (image 18 of 30) exhibiting a focus of increased signal. At the right temporal lobe there is relative loss of signal intensity compared to the contralateral side. The corresponding apparent diffusion coefficient imaging shows relative increased signal at this same area. SUSCEPTIBILITY WEIGHTED IMAGES: At the right temporal lobe where there is increased T2 signal through much of the cortex there is a 6 mm focus of decreased signal. On the SWI imaging this corresponds to a lack of signal intensity that is contiguous with a column of such signal communicating with the underlying white matter tracts. (SWI imaging 24 through 30). CEREBRUM: On the T2 FLAIR imaging there is multifocal periventricular and subcortical signal intensities most consistent with chronic microvascular disease. There is a more focal area of subcortical signal intensity at the right parietal lobe (image 18) measuring a centimeter in greatest dimension. At the temporal lobe there is mildly increased T2 signal involving the cortex and the adjacent subcortical white matter tracts. There is no T1 bright signal intensity fluid in the extra-axial space adjacent to the right temporal lobe. BRAINSTEM: There are no focal parenchymal abnormalities. CEREBELLUM: There are no focal parenchymal abnormalities. The cerebellar tonsils are normal in size and position. SELLA: The sella is normal. PINEAL: The pineal region is clear. CP ANGLE/TEMPORAL BONES: The labyrinthine structures are grossly normal. VESSELS: Normal flow-voids are noted within the visualized vertebral vasculature. PARANASAL SINUSES/MASTOIDS: The paranasal sinuses are clear. ORBITS: The orbits are unremarkable. BONES AND SOFT TISSUE: No bone or soft tissue abnormalities are noted. IMPRESSION: 1. THE CONSTELLATION OF IMAGING FINDINGS DESCRIBED ABOVE INDICATE A SUBACUTE TO CHRONIC RIGHT TEMPORAL LOBE STROKE POSSIBLY WITH A SMALL FOCAL INFARCTION AT THE POSTERIOR RIGHT SUBINSULAR CORTEX. THERE IS NO DEFINITE LARGE EXTRA-AXIAL HEMORRHAGE AT THIS LOCATION OR ELSEWHERE. THERE DOES APPEAR TO CHRONIC INTRAPARENCHYMAL HEMORRHAGE AT THE RIGHT TEMPORAL LOBE AND UNDERLYING WHITE MATTER INDICATED BY THE SWI IMAGING. 2. ADDITIONAL CHRONIC FINDINGS ARE MOST CONSISTENT WITH DIFFUSE CHRONIC MICROVASCULAR DISEASE. LESS LIKELY ETIOLOGY IS INFLAMMATORY DEMYELINATING DISEASE. THESE 2 ETIOLOGIES CAN BE DIFFERENTIATED WITH CONTRAST-ENHANCED IMAGING IF CLINICALLY WARRANTED.
--- NOTE | 2017-06-13 15:54 | PN ---
Hospitalist Progress Note Patient with asymptomatic bradycardia with junctional escape beats and one noted 3 second pause. Patient denies any dizziness or chest pain or other symptoms during episode. Thought to be secondary to labetalol patient received last evening. Continue to closely monitor. If persists on Wednesday, will consider cardiology consult.
[2017-06-13 17:13] LABS: Magnesium 1.7 mg/dL (1.9-2.7)
[2017-06-13 17:21] LABS: TSH (Thyroid Stimulating Horm) 4.89 mcIU/mL (0.34-5.60)
[2017-06-13 17:28] LABS: Free T4 0.82 ng/dL (0.61-1.12)
[2017-06-13] MEDS: Atorvastatin* 80 MG TAB PO SCH (17:30)
[2017-06-13 18:10] LABS: Hematocrit 25 % (35-47); Hemoglobin 8.1 g/dl (12.0-16.0)
[2017-06-13 18:17] LABS: Comments Flag Yes
--- NOTE | 2017-06-13 18:56 | RAD ---
INDICATION: Follow-up imaging status post TPA administration for CVA. COMPARISON: Most recent CT of the brain is dated June 12, 2017 acquired at 1829 hours as well as same day MRI of the brain which shows evidence of a chronic right temporal lobe stroke and potential microinfarct at the right subinsular cortex. TECHNIQUE: Contiguous axial sections of the brain were obtained from the skull base to the vertex without contrast. FINDINGS: Relative to the previous CT of the brain there is an area measuring 2.5 cm in greatest axial dimension at the right temporal lobe where there is loss of wadsworth-white matter differentiation and appearance of an septal malacia. Immediately adjacent to the inner table of the calvarium there is ill-defined dense tissue not significantly changed from the previous CT examination. There is no definite intracranial hemorrhage, mass or mass effect. Again seen is evidence of chronic microvascular disease. No significant focal osseous abnormality is present. The visualized portion of the paranasal sinuses and mastoid air cells appear clear. IMPRESSION: There has been no discernible change in the appearance of the right temporal lobe encephalomalacia when compared to the most recent CT of the brain dated June 12, 2017 acquired at 1829 hours. There is no definite acute intracranial hemorrhage.
[2017-06-13] MEDS: Dipyridamole/Aspirin 25/200* CAP.ER PO SCH (21:27)
--- NOTE | 2017-06-13 23:06 | CONS ---
CC: Dr. Deena Sullivan; Dr. Augustin Bernal * CONSULTATION REPORT: DATE OF CONSULT: 06/13/17 LOCATION: She is in ICU bed 5. HOSPITALIST: Felipe Harrington NP. CHIEF COMPLAINT: Slurred speech and left-sided weakness. INTERVAL HISTORY: Ella Dan is an 81-year-old right-handed woman who presented to the emergency room yesterday with left-sided weakness and some slurred speech. Symptoms began at about 2:30. The patient said she was alone at home and went out to get the mail and newspaper, which reliably come at 2: 30. She realized that she was having difficulty opening the door as though she could not figure out how to work the handle. She dropped the newspaper and the mail multiple times. She realized something was wrong and called upstairs to the upstairs apartment to her friend for help. Her friend realized her speech was impaired and so called 911. An ambulance arrived and she was brought into the emergency room. She was evaluated by Dr. Saturnino Johnson and then by Dr. Augustin Bernal of [facility]. According to Dr. Johnson's note, she had slurred speech when he saw her and the ambulance attendings reported left-sided weakness and slurred speech when they found her. Dr. Johnson's neurological examination was notable for weakness of the left arm and incoordination of the left hand. I believe the NIH stroke score that he came up with was 6. I do not yet have Dr. Bernal's note, but I spoke with him last evening. The patient was deemed a candidate for TPA and so TPA was infused as per the usual protocol. I was told that the patient had some worsening of her left-sided weakness and slurred speech temporarily last evening. This led to a repeat CAT scan and these studies will be reviewed below. Today in the intensive care unit, she feels fine. She feels she is back to her normal state. She does not have any headache. She does not endorse any problems with speech or swallowing or strength or coordination in her limbs. She complains of being hungry. She reports that prior to 2:30 yesterday, she just was not feeling well. She has no specific complaints and she was alone up until the time that she called her friend. She had been to a 17-year-old birthday libertarian the night before, which was out of her usual pattern in terms of eating late, eating cake, and being out later than usual. There is no prior history of stroke. About a year and a half ago, she had bilateral carotid endarterectomies. She developed some slurred speech, which was transient and resolved in either minutes or hours. She did not think too much of that, but a couple of days later, was watching something on television about stroke symptoms and decided to go to [facility] Emergency Room. She had some type of imaging and was said to have "99%" stenosis of the right carotid and "90%" stenosis of the left by her verbal report. She was transferred to [facility] and underwent a right endarterectomy followed by a left endarterectomy some time interval later. She states she had no sequelae from that event and has had no other stroke symptoms. She has been on Plavix and aspirin since her endarterectomies over a year ago. PAST MEDICAL HISTORY: Notable for hypertension, ongoing tobacco dependence, bilateral endarterectomies, and anemia for which she has been evaluated for over a year, cataract extractions, hyperlipidemia. MEDICATIONS: At home prior to presentation were: 1. Plavix 75 mg p.o. daily. 2. Aspirin 81 mg p.o. daily. 3. Lipitor 80 mg p.o. daily. ALLERGIES: She does not have any drug allergies. REVIEW OF SYSTEMS: Notable for anemia for over a year. She describes a bone marrow biopsy by Dr. Anne and a recommendation to get "hormonal therapy" to increase the red blood cell mass. She states this is the same thing that Surendra Sifuentes got. She said she was taking B12 supplementation for a while. She was scheduled for colonoscopy later this week because of "something of concern" on a study that she had following IV contrast, which sounds like probably a CT of her abdomen and pelvis. She said there was something in the ascending colon. She has lost weight this last year. She denies headaches, word finding problems or change in vision. There is no history of heart disease or diabetes. PHYSICAL EXAMINATION: She is thin and a little bit pale but well hydrated. Her temperature 97.9 temporally. Blood pressure most recently 182/94 but was 170/40 earlier and 150/60 earlier this morning. Heart rate is in the 50s and in sinus on the monitor. Respiratory rate is 18, oxygen saturation 94% on room air. Lungs are clear bilaterally. Heart is in a regular rhythm without murmurs heard. Carotid pulses are symmetrical and there are well-healed endarterectomy scars. There are no cervical bruits. Oral mucosa is moist and atraumatic. There is no pedal edema. On neurological exam, pupils react equally from 3 to 2 mm. Funduscopic exam reveals sharp discs and arterial tortuosity. No hemorrhages. Visual morrow are full to confrontation in all 4 quadrants bilaterally. There is no ptosis. Facial musculature appears symmetric to me. Facial sensation to light touch is symmetric. Palate and tongue appear normal. Palate rises symmetrically and tongue protrudes in the midline. There is no dysarthria. She is a little hard of hearing bilaterally. Neck strength is normal for age. Motor exam reveals pretty good strength proximally and distally in all limbs. There is no drift of any extremity. Finger taps are normal in both hands. [id number] maneuver is normal in both hands. [id number] maneuver is normal in both legs. There is no rest, sustention, or action tremor. Sensory exam to the light touch is normal in the limbs. Vibration is diminished in the feet. Reflexes are hypoactive but present in the arms and knees, absent at ankles. Plantars are flexor bilaterally. I did not attempt to ambulate her. She is alert and oriented and an excellent historian for her 81 years of age. Memory seems preserved and language is fluent. She has good attention, concentration, and fund of knowledge. DIAGNOSTIC STUDIES/LAB DATA: Includes a CT of the brain when she first presented, which I reviewed. There is area of hypodensity in the right posterior temporal area suggestive of a subacute infarction. There are also areas of hypointensity in the deep white matter in the left hemisphere. A followup CT scan of the brain at 181 after she had gotten worse looked unchanged to me. However, the radiologist read it as showing a small increase in the area of hyperdensity near the right posterior temporal lobe suspicious for an extraaxial hemorrhage. CT angiogram of the neck and brain reviewed as well and there is no evidence of significant intracranial or extracranial stenosis. Other laboratory data is notable for CBC with a white blood cell count of 6.9 today, hemoglobin 7.8 which is down from yesterday when it was 9.0. MCV elevated at 102, platelet count normal at 282,000. INR normal at 0.98, PTT is low at 19.6. It was within normal limits or at least low normal yesterday at 26. Chemistry is notable for unremarkable glucose, hemoglobin A1c this morning of 4.9%, albumin low at 2.8 and total protein 5.0. Cholesterol this morning 107 , LDL 61. IMPRESSION: Right hemisphere transient ischemic attack which appears to have resolved after treatment with TPA. There is an interpretation of possible extraaxial blood on the CT scan of the brain last night, but to my review and after discussion with Dr. Bernal last evening, it is not clearly the case as it may be preserved isalnd of cortex surrounded by hypodensity. However, because of that possibility, I would like to get an MRI scan today, Wednesday, rather than wait further. I spoke with Dr. Vera who is going to call in the MR team. Meanwhile, clinically she looks excellent. Given her anemia and description of her workup, I put in some blood work for evaluation of that. Specifically, I want to make sure she does not have antiphospholipid antibodies. She is presumably an aspirin and Plavix failure. Unless we find a cardioembolic source or pattern of multiple cardioembolic strokes on her imaging , then antiplatelet therapy would still be largely recommended. I would anticipate switching to Aggrenox unless we find a cardioembolic source or a prothrombotic state. Further recommendations would depend upon her hospital course and the results of her studies. [id number]/[facility] #: [id number] ALDAIR
[2017-06-14] MEDS: NS 0.9% 1000 ML* 1,000 ML IV SCH (02:40)
[2017-06-14 05:18] LABS: Corrected Retic Count 0.9 % (0.5-1.5); Hematocrit 24 % (35-47); Hemoglobin 7.9 g/dl (12.0-16.0); Immature Retic Fraction 0.52; Mean Corpuscular HGB Conc 33 g/dl (31-36); Mean Corpuscular Hemoglobin 33 pg (27-31); Mean Corpuscular Volume 102 fL (80-97); Mean Platelet Volume 8 um3 (7.4-10.4); Red Blood Count 2.38 10^6/ul (4.0-5.4); Red Cell Distribution Width 15 % (10.5-15); White Blood Count 9.1 10^3/ul (3.5-10.8)
[2017-06-14 05:41] LABS: Magnesium 2.4 mg/dL (1.9-2.7); Total Iron Binding Capacity 283 mcg/dL (250-450); Transferrin 202 mg/dL (203-362)
[2017-06-14 05:56] LABS: Erythrocyte Sed Rate 50 mm/Hr (0-40)
[2017-06-14 05:57] LABS: Iron 11 ug/dL (50-212)
[2017-06-14 06:06] LABS: Folate > 20.00 ng/mL (>3.99)
[2017-06-14 06:07] LABS: Vitamin B12 > 1450 pg/mL (180-914)
[2017-06-14] MEDS: Docusate CAP* 100 MG PO SCH ×2 (09:45→20:03)
[2017-06-14] MEDS: Dipyridamole/Aspirin 25/200* CAP.ER PO SCH ×2 (09:45→20:43)
--- NOTE | 2017-06-14 12:36 | PN ---
Subjective Date of Service: 06/14/17 Interval History: Ms. Dan states that she is feeling well today. He denies chest pain, SOB, nausea, or abdominal pain. She is eager to get up and ambulate. Family History: Unchanged from Admission Social History: Unchanged from Admission Past Medical History: Unchanged from Admission Objective Active Medications: Acetaminophen (Tylenol Tab*) 650 mg PO Q4H PRN Atorvastatin Calcium (Lipitor*) 80 mg PO 1700 CORTEZ Dipyridamole/Aspirin (Aggrenox 25/200*) 1 cap.er PO BID CORTEZ Docusate Sodium (Colace Cap*) 100 mg PO BID CORTEZ Sodium Chloride (Ns 0.9% 1000 Ml*) 1,000 mls @ 75 mls/hr IV .per rate CORTEZ Ondansetron HCl (Zofran Inj*) 4 mg IV Q6H PRN Vital Signs 06/13/17 06/13/17 06/13/17 12:59 13:00 13:09 Temperature Pulse Rate 105 100 51 Respiratory 19 21 Rate Blood Pressure (mmHg) O2 Sat by Pulse 89 87 95 Oximetry 06/13/17 06/13/17 06/13/17 13:15 13:21 13:30 Temperature Pulse Rate 57 57 50 Respiratory 34 21 19 Rate Blood Pressure 131/85 133/34 (mmHg) O2 Sat by Pulse 95 89 93 Oximetry 06/13/17 06/13/17 06/13/17 13:45 14:00 14:15 Temperature Pulse Rate 65 55 53 Respiratory 20 18 19 Rate Blood Pressure 183/38 (mmHg) O2 Sat by Pulse 93 92 94 Oximetry 06/13/17 06/13/17 06/13/17 14:30 14:45 15:00 Temperature Pulse Rate 56 51 51 Respiratory 21 18 16 Rate Blood Pressure 178/90 175/44 (mmHg) O2 Sat by Pulse 95 94 94 Oximetry 06/13/17 06/13/17 06/13/17 15:15 15:30 15:45 Temperature Pulse Rate 51 52 51 Respiratory 15 19 15 Rate Blood Pressure 177/42 (mmHg) O2 Sat by Pulse 94 92 94 Oximetry 06/13/17 06/13/17 06/13/17 16:00 16:15 16:30 Temperature 98.3 F Pulse Rate 55 56 59 Respiratory 18 34 21 Rate Blood Pressure 183/46 194/53 (mmHg) O2 Sat by Pulse 94 94 93 Oximetry 06/13/17 06/13/17 06/13/17 16:45 16:59 17:00 Temperature Pulse Rate 57 58 Respiratory 21 22 20 Rate Blood Pressure (mmHg) O2 Sat by Pulse 95 95 Oximetry 06/13/17 06/13/17 06/13/17 17:07 17:15 17:30 Temperature Pulse Rate 53 55 50 Respiratory 19 17 17 Rate Blood Pressure 200/59 167/64 (mmHg) O2 Sat by Pulse 95 87 93 Oximetry 06/13/17 06/13/17 06/13/17 17:45 18:00 18:15 Temperature Pulse Rate 39 51 52 Respiratory 18 19 21 Rate Blood Pressure 185/64 (mmHg) O2 Sat by Pulse 88 92 88 Oximetry 06/13/17 06/13/17 06/13/17 18:30 18:35 18:45 Temperature Pulse Rate 55 61 56 Respiratory 21 20 19 Rate Blood Pressure 162/61 (mmHg) O2 Sat by Pulse 90 94 92 Oximetry 06/13/17 06/13/17 06/13/17 19:00 19:15 19:30 Temperature Pulse Rate 88 61 53 Respiratory 19 19 20 Rate Blood Pressure 100/60 (mmHg) O2 Sat by Pulse 92 89 92 Oximetry 06/13/17 06/13/17 06/13/17 19:45 20:00 20:10 Temperature 99.6 F Pulse Rate 65 67 Respiratory 16 16 18 Rate Blood Pressure (mmHg) O2 Sat by Pulse 96 91 Oximetry 06/13/17 06/13/17 06/13/17 20:13 20:15 20:30 Temperature Pulse Rate 95 81 Respiratory 15 15 15 Rate Blood Pressure 106/40 100/78 (mmHg) O2 Sat by Pulse 84 96 Oximetry 06/13/17 06/13/17 06/13/17 20:45 20:59 21:00 Temperature Pulse Rate 60 52 55 Respiratory 18 15 17 Rate Blood Pressure 97/84 (mmHg) O2 Sat by Pulse 95 93 87 Oximetry 06/13/17 06/13/17 06/13/17 21:02 21:15 21:30 Temperature Pulse Rate 59 47 49 Respiratory 20 15 15 Rate Blood Pressure 97/84 (mmHg) O2 Sat by Pulse 90 93 93 Oximetry 06/13/17 06/13/17 06/13/17 21:45 22:00 22:02 Temperature Pulse Rate 46 44 46 Respiratory 14 14 13 Rate Blood Pressure 92/21 (mmHg) O2 Sat by Pulse 92 92 92 Oximetry 06/13/17 06/13/17 06/13/17 22:15 22:30 22:45 Temperature Pulse Rate 47 47 53 Respiratory 13 13 16 Rate Blood Pressure (mmHg) O2 Sat by Pulse 92 92 93 Oximetry 06/13/17 06/13/17 06/13/17 23:00 23:15 23:30 Temperature Pulse Rate 49 49 46 Respiratory 15 18 15 Rate Blood Pressure 95/50 (mmHg) O2 Sat by Pulse 93 92 92 Oximetry 06/13/17 06/13/17 06/14/17 23:39 23:45 00:00 Temperature 99.9 F Pulse Rate 56 48 52 Respiratory 19 15 16 Rate Blood Pressure (mmHg) O2 Sat by Pulse 95 92 93 Oximetry 06/14/17 06/14/17 06/14/17 00:02 00:15 00:30 Temperature Pulse Rate 50 50 49 Respiratory 17 19 16 Rate Blood Pressure 102/28 (mmHg) O2 Sat by Pulse 93 94 93 Oximetry 06/14/17 06/14/17 06/14/17 00:45 01:00 01:15 Temperature Pulse Rate 54 50 58 Respiratory 19 17 18 Rate Blood Pressure 107/31 (mmHg) O2 Sat by Pulse 94 94 95 Oximetry 06/14/17 06/14/17 06/14/17 01:30 01:45 02:00 Temperature Pulse Rate 53 52 56 Respiratory 19 20 25 Rate Blood Pressure 122/55 (mmHg) O2 Sat by Pulse 93 94 90 Oximetry 06/14/17 06/14/17 06/14/17 02:15 02:30 02:45 Temperature Pulse Rate 48 46 51 Respiratory 19 15 18 Rate Blood Pressure (mmHg) O2 Sat by Pulse 91 90 93 Oximetry 06/14/17 06/14/17 06/14/17 03:00 03:15 03:30 Temperature Pulse Rate 56 57 58 Respiratory 17 17 19 Rate Blood Pressure 111/24 (mmHg) O2 Sat by Pulse 93 93 92 Oximetry 06/14/17 06/14/17 06/14/17 03:45 04:00 04:15 Temperature Pulse Rate 57 58 41 Respiratory 16 16 15 Rate Blood Pressure 105/85 (mmHg) O2 Sat by Pulse 92 90 90 Oximetry 06/14/17 06/14/17 06/14/17 04:30 04:45 05:00 Temperature Pulse Rate 58 59 61 Respiratory 18 28 21 Rate Blood Pressure (mmHg) O2 Sat by Pulse 92 93 94 Oximetry 06/14/17 06/14/17 06/14/17 05:07 05:11 05:15 Temperature Pulse Rate 57 58 53 Respiratory 17 18 19 Rate Blood Pressure 129/47 129/47 (mmHg) O2 Sat by Pulse 94 93 93 Oximetry 06/14/17 06/14/17 06/14/17 05:30 05:45 06:00 Temperature Pulse Rate 45 61 52 Respiratory 16 16 16 Rate Blood Pressure 155/44 (mmHg) O2 Sat by Pulse 93 93 93 Oximetry 06/14/17 06/14/17 06/14/17 06:15 07:00 07:06 Temperature Pulse Rate 60 51 56 Respiratory 19 22 20 Rate Blood Pressure 133/72 (mmHg) O2 Sat by Pulse 92 94 94 Oximetry 06/14/17 06/14/17 06/14/17 08:00 08:37 09:00 Temperature 99 F Pulse Rate 52 65 Respiratory 16 14 Rate Blood Pressure 157/52 (mmHg) O2 Sat by Pulse 91 92 93 Oximetry 06/14/17 06/14/17 06/14/17 09:32 10:00 11:00 Temperature Pulse Rate 48 53 Respiratory 22 18 17 Rate Blood Pressure 119/52 98/35 81/51 (mmHg) O2 Sat by Pulse 97 96 Oximetry 06/14/17 11:11 Temperature Pulse Rate 57 Respiratory 17 Rate Blood Pressure 131/53 (mmHg) O2 Sat by Pulse 97 Oximetry Oxygen Devices in Use Now: None Appearance: Female lying in bed in NAD Eyes: No Scleral Icterus Ears/Nose/Mouth/Throat: Mucous Membranes Moist Neck: Trachea Midline Respiratory: Symmetrical Chest Expansion and Respiratory Effort, Clear to Auscultation Cardiovascular: NL Sounds; No Murmurs; No JVD, No Edema Abdominal: NL Sounds; No Tenderness; No Distention Lymphatic: No Cervical Adenopathy Extremities: No Edema Skin: No Rash or Ulcers Neurological: Alert and Oriented x 3, NL Muscle Strength and Tone Nutrition: Taking PO's Result Diagrams: 06/14/17 05:00 06/13/17 06:20 Additional Lab and Data: Lab Results 06/12/17 06/12/17 06/12/17 Range/Units 16:09 16:09 16:09 WBC 7.8 (3.5-10.8) 10^3/ul RBC 2.71 L (4.0-5.4) 10^6/ul Hgb 9.0 L (12.0-16.0) g/dl Hct 28 L (35-47) % MCV 102 H (80-97) fL MCH 33 H (27-31) pg MCHC 33 (31-36) g/dl RDW 15 (10.5-15) % Plt Count 338 (150-450) 10^3/ul MPV 7 L (7.4-10.4) um3 Neut % (Auto) 77.1 (38-83) % Lymph % (Auto) 10.5 L (25-47) % Pacific % (Auto) 9.6 H (1-9) % Eos % (Auto) 2.1 (0-6) % Baso % (Auto) 0.7 (0-2) % Absolute Neuts (auto) 6.0 (1.5-7.7) 10^3/ul Absolute Lymphs (auto) 0.8 L (1.0-4.8) 10^3/ul Absolute Monos (auto) 0.8 (0-0.8) 10^3/ul Absolute Eos (auto) 0.2 (0-0.6) 10^3/ul Absolute Basos (auto) 0.1 (0-0.2) 10^3/ul Absolute Nucleated RBC 0 10^3/ul Nucleated RBC % 0 INR (Anticoag Therapy) 0.94 (0.89-1.11) APTT 26.0 (26.0-36.3) seconds Sodium 134 (133-145) mmol/L Potassium 4.4 (3.5-5.0) mmol/L Chloride 103 (101-111) mmol/L Carbon Dioxide 25 (22-32) mmol/L Anion Gap 6 (2-11) mmol/L BUN 17 (6-24) mg/dL Creatinine 0.85 (0.51-0.95) mg/dL Est GFR ( Amer) 82.8 (>60) Est GFR (Non-Af Amer) 64.4 (>60) BUN/Creatinine Ratio 20.0 (8-20) Glucose 91 (70-100) mg/dL Lactic Acid (0.5-2.0) mmol/L Calcium 9.0 (8.6-10.3) mg/dL Total Bilirubin 0.20 (0.2-1.0) mg/dL AST 23 (13-39) U/L ALT 15 (7-52) U/L Alkaline Phosphatase 59 (34-104) U/L Troponin I 0.03 (<0.04) ng/mL Total Protein 6.3 L (6.4-8.9) g/dL Albumin 3.6 (3.2-5.2) g/dL Globulin 2.7 (2-4) g/dL Albumin/Globulin Ratio 1.3 (1-3) Triglycerides 80 mg/dL Cholesterol 130 mg/dL LDL Cholesterol 70 mg/dL HDL Cholesterol 44.0 mg/dL Urine Color Urine Appearance Urine pH (5-9) Ur Specific [place] (1.010-1.030) Urine Protein (Negative) Urine Ketones (Negative) Urine Blood (Negative) Urine Nitrate (Negative) Urine Bilirubin (Negative) Urine Urobilinogen (Negative) Ur Leukocyte Esterase (Negative) Urine WBC (Auto) (Absent) Urine RBC (Auto) (Absent) Urine Bacteria (Absent) Urine Glucose (Negative) Urine Ascorbic Acid (Negative) Blood Type Antibody Screen 06/12/17 06/12/17 06/12/17 Range/Units 16:09 16:09 18:37 WBC (3.5-10.8) 10^3/ul RBC (4.0-5.4) 10^6/ul Hgb (12.0-16.0) g/dl Hct (35-47) % MCV (80-97) fL MCH (27-31) pg MCHC (31-36) g/dl RDW (10.5-15) % Plt Count (150-450) 10^3/ul MPV (7.4-10.4) um3 Neut % (Auto) (38-83) % Lymph % (Auto) (25-47) % Pacific % (Auto) (1-9) % Eos % (Auto) (0-6) % Baso % (Auto) (0-2) % Absolute Neuts (auto) (1.5-7.7) 10^3/ul Absolute Lymphs (auto) (1.0-4.8) 10^3/ul Absolute Monos (auto) (0-0.8) 10^3/ul Absolute Eos (auto) (0-0.6) 10^3/ul Absolute Basos (auto) (0-0.2) 10^3/ul Absolute Nucleated RBC 10^3/ul Nucleated RBC % INR (Anticoag Therapy) (0.89-1.11) APTT (26.0-36.3) seconds Sodium (133-145) mmol/L Potassium (3.5-5.0) mmol/L Chloride (101-111) mmol/L Carbon Dioxide (22-32) mmol/L Anion Gap (2-11) mmol/L BUN (6-24) mg/dL Creatinine (0.51-0.95) mg/dL Est GFR ( Amer) (>60) Est GFR (Non-Af Amer) (>60) BUN/Creatinine Ratio (8-20) Glucose (70-100) mg/dL Lactic Acid 0.8 (0.5-2.0) mmol/L Calcium (8.6-10.3) mg/dL Total Bilirubin (0.2-1.0) mg/dL AST (13-39) U/L ALT (7-52) U/L Alkaline Phosphatase (34-104) U/L Troponin I (<0.04) ng/mL Total Protein (6.4-8.9) g/dL Albumin (3.2-5.2) g/dL Globulin (2-4) g/dL Albumin/Globulin Ratio (1-3) Triglycerides mg/dL Cholesterol mg/dL LDL Cholesterol mg/dL HDL Cholesterol mg/dL Urine Color Yellow Urine Appearance Clear Urine pH 7.0 (5-9) Ur Specific [place] 1.005 L (1.010-1.030) Urine Protein Negative (Negative) Urine Ketones Negative (Negative) Urine Blood Negative (Negative) Urine Nitrate Negative (Negative) Urine Bilirubin Negative (Negative) Urine Urobilinogen Negative (Negative) Ur Leukocyte Esterase 2+ H (Negative) Urine WBC (Auto) 2+(11-20/hpf) H (Absent) Urine RBC (Auto) Absent (Absent) Urine Bacteria Absent (Absent) Urine Glucose Negative (Negative) Urine Ascorbic Acid * H (Negative) Blood Type B Positive Antibody Screen Negative Microbiology and Other Data: Microbiology 06/12/17 21:26 Nasal Screen MRSA (PCR)(RAQUEL) - Final Nasal Mrsa Negative Diagnostic Imaging: CT brain upon admission, IMPRESSION: 1. No acute intracranial hemorrhage identified. 2. Potential loss of wadsworth-white matter differentiation at the right temporoparietal lobe. Without prior brain imaging for comparison determination of chronicity on a noncontrast CT of the brain is limited. 3. Additional age-appropriate chronic findings described above. Follow up CT brain, IMPRESSION: Again seen is loss of wadsworth-white matter differentiation at the right temporoparietal lobe similar in appearance to the previous CT of the brain. Since the prior CT there has been enlargement of a hyperdense subdural area measuring 12 mm in greatest axial dimension, previously 10 mm. On the prior CT examination it appeared this density was retained cortex as part of an evolving infarction, but the increase in size of the hyperattenuation now with 2 CTs to compare is concerning for extra-axial hemorrhage. CTA Head/neck, IMPRESSION: 1. No hemodynamically significant stenosis at either carotid bulb status post carotid endarterectomies. 2. No focal filling defect in the arterial vasculature of the head and neck. CXR, IMPRESSION: Appearance of the lungs is consistent with chronic obstructive pulmonary disease without radiographically acute cardiopulmonary abnormality. Assess/Plan/Problems-Billing Assessment: Ms. Dan is an 81 yo female with a PMH of previous TIA, carotid endarterectomy , CAD, HLD, tobacco abuse, and anemia who presented to the ED on 06/12/17 with concern for left sided weakness and facial droop with concern for CVA now s/p TPA. - Patient Problems (1) CVA (cerebral vascular accident) Comment: - Symptoms resolved. - S/p TPA on 06/12 - CT brain showed potential involvement at right temporoparietal lobe and question of hemorrhage. CTA head/neck shows no significant stenosis or focal filling defect. - Repeat CT brain shows no change. - MRI brain shows subacute to chronic infarct in right temporal lobe with possible small acute infarct, also shows chronic intraparenchymal hemorrhage in right temporal lobe. - Echocardiogram shows no significant wall motion or valvular abnormalities, no evidence of PFO. - Mobilize out of bed, approved per neurology. - Neurology following, suspects cardioembolic cause, continue telemetry. - ASA, heparin and other anticoagulants on hold until approved per neurology. (2) Bradycardia Comment: - Patient appears to have some mild sinus node dysfunction with junctional escape back up rhythm. - Patient reports feeling lightheaded at times at home but she has attributed this to anemia in the past. - Recommend outpatient follow up with cardiology for holter moniter. - Continue telemetry here with mobilization to see if any symptoms correspond to bradycardia. (3) History of TIAs Comment: - Reported to have occurred in 2016. - Also with hx of carotid endarterectomy x 2. - ASA and clopidogrel, awaiting recommendations from neurology. (4) Anemia Comment: - Stable. - Patient with hx of anemia (no previous labs to establish baseline). (5) CAD (coronary artery disease) Comment: - ASA and clopidogrel on hold. Continue statin. (6) HLD (hyperlipidemia) Comment: - Continue atorvastatin. (7) Tobacco abuse Comment: - Smoking cessation education provided. (8) DNR (do not resuscitate) (9) DVT prophylaxis Comment: - SCDs Status and Disposition: Inpatient admission. Anticipate LOS >2 days for acute CVA with anticipated rehab needs.
[2017-06-14] MEDS: Atorvastatin* 80 MG TAB PO SCH (16:58)
[2017-06-15 07:28] VITALS: BP 148/59
[2017-06-15] MEDS: Dipyridamole/Aspirin 25/200* CAP.ER PO SCH (07:54)
[2017-06-15] MEDS: Docusate CAP* 100 MG PO SCH (07:56)
[2017-06-15] MEDS ORDERED: Aspirin EC Low Dose* 81 MG TAB.EC PO SCH (09:00)
[2017-06-15] MEDS ORDERED: Clopidogrel TAB* 75 MG PO SCH (09:00)
--- NOTE | 2017-06-15 10:30 | PN ---
Subjective Date of Service: 06/15/17 Interval History: Ms. Dan denies complaint today including chest pain, SOB, nausea, or abdominal pain. She denies weakness or dysarthria. Family History: Unchanged from Admission Social History: Unchanged from Admission Past Medical History: Unchanged from Admission Objective Active Medications: Acetaminophen (Tylenol Tab*) 650 mg PO Q4H PRN PRN Reason: TEMPERATURE Aspirin (Aspirin Ec Low Dose*) 81 mg PO DAILY [facility] Last Admin: 06/15/17 09:17 Dose: Not Given Atorvastatin Calcium (Lipitor*) 80 mg PO 1700 [facility] Last Admin: 06/14/17 16:58 Dose: 80 mg Clopidogrel Bisulfate (Plavix Tab*) 75 mg PO DAILY [facility] Last Admin: 06/15/17 09:17 Dose: Not Given Docusate Sodium (Colace Cap*) 100 mg PO BID [facility] Last Admin: 06/15/17 07:56 Dose: Not Given Sodium Chloride (Ns 0.9% 1000 Ml*) 1,000 mls @ 75 mls/hr IV .per rate [facility] Last Admin: 06/14/17 02:40 Dose: 75 mls/hr Ondansetron HCl (Zofran Inj*) 4 mg IV Q6H PRN PRN Reason: NAUSEA Vital Signs 06/14/17 06/14/17 06/14/17 11:00 11:11 12:00 Temperature 98.7 F Pulse Rate 53 57 52 Respiratory 17 17 18 Rate Blood Pressure 81/51 131/53 93/51 (mmHg) O2 Sat by Pulse 96 97 95 Oximetry 06/14/17 06/14/17 06/14/17 13:00 14:00 14:37 Temperature 97.4 F Pulse Rate 60 55 Respiratory 17 19 Rate Blood Pressure 110/77 118/53 (mmHg) O2 Sat by Pulse 97 91 Oximetry 06/14/17 06/14/17 06/14/17 14:53 14:58 15:00 Temperature 97.4 F Pulse Rate 55 Respiratory 14 19 14 Rate Blood Pressure 118/55 (mmHg) O2 Sat by Pulse 91 Oximetry 06/14/17 06/14/17 06/14/17 15:23 16:00 17:00 Temperature 97.6 F Pulse Rate 49 Respiratory 20 18 18 Rate Blood Pressure 121/34 (mmHg) O2 Sat by Pulse 100 Oximetry 06/14/17 06/14/1706/14/17 18:00 19:00 19:12 Temperature Pulse Rate Respiratory 18 26 20 Rate Blood Pressure (mmHg) O2 Sat by Pulse Oximetry 06/14/17 06/14/17 06/14/17 19:51 20:00 21:00 Temperature 97.4 F Pulse Rate 60 Respiratory 20 17 0 Rate Blood Pressure 114/34 (mmHg) O2 Sat by Pulse 100 Oximetry 06/14/17 06/14/17 06/14/17 21:18 22:00 23:00 Temperature Pulse Rate Respiratory 13 14 19 Rate Blood Pressure (mmHg) O2 Sat by Pulse Oximetry 06/14/17 06/15/17 06/15/17 23:46 00:00 01:00 Temperature 98.0 F Pulse Rate 62 Respiratory 16 18 9 Rate Blood Pressure 170/51 (mmHg) O2 Sat by Pulse 97 Oximetry 06/15/17 06/15/17 06/15/17 04:09 07:22 08:00 Temperature 98.1 F 97.9 F Pulse Rate 57 65 Respiratory 20 20 18 Rate Blood Pressure 147/56 148/59 (mmHg) O2 Sat by Pulse 95 93 93 Oximetry Oxygen Devices in Use Now: None Appearance: Female lying in bed in NAD Eyes: No Scleral Icterus Ears/Nose/Mouth/Throat: Mucous Membranes Moist Neck: Trachea Midline Respiratory: Symmetrical Chest Expansion and Respiratory Effort, Clear to Auscultation Cardiovascular: NL Sounds; No Murmurs; No JVD, No Edema Abdominal: No Hepatosplenomegaly Lymphatic: No Cervical Adenopathy Extremities: No Edema Skin: No Rash or Ulcers Neurological: Alert and Oriented x 3, NL Muscle Strength and Tone Nutrition: Taking PO's Result Diagrams: 06/14/17 05:00 06/13/17 06:20 Additional Lab and Data: Lab Results 06/12/17 06/12/17 06/12/17 Range/Units 16:09 16:09 16:09 WBC 7.8 (3.5-10.8) 10^3/ul RBC 2.71 L (4.0-5.4) 10^6/ul Hgb 9.0 L (12.0-16.0) g/dl Hct 28 L (35-47) % MCV 102 H (80-97) fL MCH 33 H (27-31) pg MCHC 33 (31-36) g/dl RDW 15 (10.5-15) % Plt Count 338 (150-450) 10^3/ul MPV 7 L (7.4-10.4) um3 Neut % (Auto) 77.1 (38-83) % Lymph % (Auto) 10.5 L (25-47) % [place] % (Auto) 9.6 H (1-9) % Eos % (Auto) 2.1 (0-6) % Baso % (Auto) 0.7 (0-2) % Absolute Neuts (auto) 6.0 (1.5-7.7) 10^3/ul Absolute Lymphs (auto) 0.8 L (1.0-4.8) 10^3/ul Absolute Monos (auto) 0.8 (0-0.8) 10^3/ul Absolute Eos (auto) 0.2 (0-0.6) 10^3/ul Absolute Basos (auto) 0.1 (0-0.2) 10^3/ul Absolute Nucleated RBC 0 10^3/ul Nucleated RBC % 0 INR (Anticoag Therapy) 0.94 (0.89-1.11) APTT 26.0 (26.0-36.3) seconds Sodium 134 (133-145) mmol/L Potassium 4.4 (3.5-5.0) mmol/L Chloride 103 (101-111) mmol/L Carbon Dioxide 25 (22-32) mmol/L Anion Gap 6 (2-11) mmol/L BUN 17 (6-24) mg/dL Creatinine 0.85 (0.51-0.95) mg/dL Est GFR ( Amer) 82.8 (>60) Est GFR (Non-Af Amer) 64.4 (>60) BUN/Creatinine Ratio 20.0 (8-20) Glucose 91 (70-100) mg/dL Lactic Acid (0.5-2.0) mmol/L Calcium 9.0 (8.6-10.3) mg/dL Total Bilirubin 0.20 (0.2-1.0) mg/dL AST 23 (13-39) U/L ALT 15 (7-52) U/L Alkaline Phosphatase 59 (34-104) U/L Troponin I 0.03 (<0.04) ng/mL Total Protein 6.3 L (6.4-8.9) g/dL Albumin 3.6 (3.2-5.2) g/dL Globulin 2.7 (2-4) g/dL Albumin/Globulin Ratio 1.3 (1-3) Triglycerides 80 mg/dL Cholesterol 130 mg/dL LDL Cholesterol 70 mg/dL HDL Cholesterol 44.0 mg/dL Urine Color Urine Appearance Urine pH (5-9) Ur Specific [place] (1.010-1.030) Urine Protein (Negative) Urine Ketones (Negative) Urine Blood (Negative) Urine Nitrate (Negative) Urine Bilirubin (Negative) Urine Urobilinogen (Negative) Ur Leukocyte Esterase (Negative) Urine WBC (Auto) (Absent) Urine RBC (Auto) (Absent) Urine Bacteria (Absent) Urine Glucose (Negative) Urine Ascorbic Acid (Negative) Blood Type Antibody Screen 06/12/17 06/12/17 06/12/17 Range/Units 16:09 16:09 18:37 WBC (3.5-10.8) 10^3/ul RBC (4.0-5.4) 10^6/ul Hgb (12.0-16.0) g/dl Hct (35-47) % MCV (80-97) fL MCH (27-31) pg MCHC (31-36) g/dl RDW (10.5-15) % Plt Count (150-450) 10^3/ul MPV (7.4-10.4) um3 Neut % (Auto) (38-83) % Lymph % (Auto) (25-47) % [place] % (Auto) (1-9) % Eos % (Auto) (0-6) % Baso % (Auto) (0-2) % Absolute Neuts (auto) (1.5-7.7) 10^3/ul Absolute Lymphs (auto) (1.0-4.8) 10^3/ul Absolute Monos (auto) (0-0.8) 10^3/ul Absolute Eos (auto) (0-0.6) 10^3/ul Absolute Basos (auto) (0-0.2) 10^3/ul Absolute Nucleated RBC 10^3/ul Nucleated RBC % INR (Anticoag Therapy) (0.89-1.11) APTT (26.0-36.3) seconds Sodium (133-145) mmol/L Potassium (3.5-5.0) mmol/L Chloride (101-111) mmol/L Carbon Dioxide (22-32) mmol/L Anion Gap (2-11) mmol/L BUN (6-24) mg/dL Creatinine (0.51-0.95) mg/dL Est GFR ( Amer) (>60) Est GFR (Non-Af Amer) (>60) BUN/Creatinine Ratio (8-20) Glucose (70-100) mg/dL Lactic Acid 0.8 (0.5-2.0) mmol/L Calcium (8.6-10.3) mg/dL Total Bilirubin (0.2-1.0) mg/dL AST (13-39) U/L ALT (7-52) U/L Alkaline Phosphatase (34-104) U/L Troponin I (<0.04) ng/mL Total Protein (6.4-8.9) g/dL Albumin (3.2-5.2) g/dL Globulin (2-4) g/dL Albumin/Globulin Ratio (1-3) Triglycerides mg/dL Cholesterol mg/dL LDL Cholesterol mg/dL HDL Cholesterol mg/dL Urine Color Yellow Urine Appearance Clear Urine pH 7.0 (5-9) Ur Specific [place] 1.005 L (1.010-1.030) Urine Protein Negative (Negative) Urine Ketones Negative (Negative) Urine Blood Negative (Negative) Urine Nitrate Negative (Negative) Urine Bilirubin Negative (Negative) Urine Urobilinogen Negative (Negative) Ur Leukocyte Esterase 2+ H (Negative) Urine WBC (Auto) 2+(11-20/hpf) H (Absent) Urine RBC (Auto) Absent (Absent) Urine Bacteria Absent (Absent) Urine Glucose Negative (Negative) Urine Ascorbic Acid * H (Negative) Blood Type B Positive Antibody Screen Negative Microbiology and Other Data: Microbiology 06/12/17 21:26 Nasal Screen MRSA (PCR)(RAQUEL) - Final Nasal Mrsa Negative Diagnostic Imaging: CT brain upon admission, IMPRESSION: 1. No acute intracranial hemorrhage identified. 2. Potential loss of wadsworth-white matter differentiation at the right temporoparietal lobe. Without prior brain imaging for comparison determination of chronicity on a noncontrast CT of the brain is limited. 3. Additional age-appropriate chronic findings described above. Follow up CT brain, IMPRESSION: Again seen is loss of wadsworth-white matter differentiation at the right temporoparietal lobe similar in appearance to the previous CT of the brain. Since the prior CT there has been enlargement of a hyperdense subdural area measuring 12 mm in greatest axial dimension, previously 10 mm. On the prior CT examination it appeared this density was retained cortex as part of an evolving infarction, but the increase in size of the hyperattenuation now with 2 CTs to compare is concerning for extra-axial hemorrhage. CTA Head/neck, IMPRESSION: 1. No hemodynamically significant stenosis at either carotid bulb status post carotid endarterectomies. 2. No focal filling defect in the arterial vasculature of the head and neck. CXR, IMPRESSION: Appearance of the lungs is consistent with chronic obstructive pulmonary disease without radiographically acute cardiopulmonary abnormality. Assess/Plan/Problems-Billing Assessment: Ms. Dan is an 81 yo female with a PMH of previous TIA, carotid endarterectomy , CAD, HLD, tobacco abuse, and anemia who presented to the ED on 06/12/17 with concern for left sided weakness and facial droop with concern for CVA now s/p TPA. - Patient Problems (1) CVA (cerebral vascular accident) Comment: - Symptoms resolved. - S/p TPA on 06/12 - CT brain showed potential involvement at right temporoparietal lobe and question of hemorrhage. CTA head/neck shows no significant stenosis or focal filling defect. - Repeat CT brain shows no change. - MRI brain shows subacute to chronic infarct in right temporal lobe with possible small acute infarct, also shows chronic intraparenchymal hemorrhage in right temporal lobe. - Echocardiogram shows no significant wall motion or valvular abnormalities, no evidence of PFO. - Mobilize out of bed, approved per neurology. - Neurology following, suspects cardioembolic cause, recommend outpatient follow up with cardiology for lead manufacturing engineer cardiac loop monitor implantation. - Dr. Archer recommends resuming aspirin and plavix now. (2) Bradycardia Comment: - Patient appears to have some mild sinus node dysfunction with junctional escape back up rhythm. - Patient reports feeling lightheaded at times at home but she has attributed this to anemia in the past. - Recommend outpatient follow up with cardiology for loop recorder. (3) History of TIAs Comment: - Reported to have occurred in 2016. - Also with hx of carotid endarterectomy x 2. - Resume asa and plavix per neurology. (4) Anemia Comment: - Stable. - Patient with hx of anemia (no previous labs to establish baseline). (5) CAD (coronary artery disease) Comment: - Resume asa and plavix. Continue statin. (6) HLD (hyperlipidemia) Comment: - Continue atorvastatin. (7) Tobacco abuse Comment: - Smoking cessation education provided. (8) DNR (do not resuscitate) (9) DVT prophylaxis Comment: - SCDs Status and Disposition: Inpatient admission. Discharge to home.
--- NOTE | 2017-06-15 11:37 | PN ---
PROGRESS NOTE: DATE OF VISIT: 06/14/17 HISTORY OF PRESENT ILLNESS: Ella Dan was seen in consultation by Dr. Argueta on 06/13/17 for acute onset of focal neurologic symptoms. She had TPA via telestroke with Dr. Augustin Bernal. At that time, she presented with slurred speech and left-sided weakness. She indicated about 3 months ago, she had been going to the [employer] store where she developed a facial droop and leakage of saliva on the left side of her face which resolved. This occurs in the setting of a history of hypertension, bilateral carotid endarterectomy, hyperlipidemia, and smoking. Since in hospital, she has had extensive workup as noted below. She is currently in the ICU and transferring to the floor. She denies any ongoing symptoms. PHYSICAL EXAM: On examination today, Ella Dan's most recent blood pressure is 155/44. Her pulse was 60 and regular, respiratory rate 19, saturation 92%, temperature was 99.9 degrees Fahrenheit. She had a regular cardiac rhythm. Her lungs were clear to auscultation. There was no evidence of peripheral edema. There was some bruising on her left arm near her IV site. She had good peripheral pulses. No cord to palpation in her legs. She was awake, alert, had full extraocular movements with no nystagmus, full morrow to confrontation. Her facial expression, sensation, hearing were equal. Palate was upgoing. Tongue was midline. Sternocleidomastoid, trapezius were 5/5 in strength. There was normal bulk and tone. No pronator drift. Good strength in the upper and lower extremities with normal [id number] and teeh-ei-ythd movements. Her reflexes are 2+ and symmetric throughout. Toes are flexor response. She denied any asymmetries to pinprick, cold, or light touch. DIAGNOSTIC STUDIES/LAB DATA: Date includes MRI of the brain, which was reviewed directly and showed old pontine ischemia and old periventricular ischemia. There was a small area of positive diffusion weighted imaging in the right centrum semiovale and an area of subacute to chronic right temporal cortical ischemia and within it a component of hemorrhage. Please see reports for details. Echocardiogram showed no cardioembolic source, please see the report for details. Her hemoglobin A1c was 4.9. Her cholesterol 107, LDL 61, HDL 33, triglyceride 65. Telemetry showed bradycardia ongoing at bedside. CTA of the brain and neck showed significant atherosclerosis of the aorta in the origin of the branch arteries, this film was reviewed directly. CURRENT MEDICATIONS: Include, 1. Aggrenox 1 tablet p.o. b.i.d. 2. Lipitor 80 mg p.o. q.h.s. 3. Tylenol 650 mg p.o. q.4 hours. 4. Docusate 100 mg p.o. b.i.d. 5. Zofran 4 mg IV q.6 hours p.r.n. nausea. 6. Sodium chloride at 75 mL an hour. She was on this dose of atorvastatin at home per chart. IMPRESSION: Ella Dan is an 81-year-old woman with history of hypertension, smoking, bilateral carotid endarterectomy, hyperlipidemia; on Plavix, aspirin and Lipitor on admission with repeat strokes in the right temporal region and centrum semiovale region. She is status post TPA with resolution of symptoms, is doing quite well. Given the repeat episodes in similar location, the morphology of the originial stroke, one must question if this may be thromboembolic event versus cardioembolic event. Thus far, no cardiac source has been found. She is being monitored on telemetry. I would start to mobilize her and watch her rhythm. She is appropriately treated with Lipitor. She has been switched from Plavix and aspirin to Aggrenox and I will discuss further antiplatelet therapy with Dr. Bernal and Dr. Argueta. One of her major risk factors is stroking and education was given at length. Over 40 minutes was spent in direct face-to- face patient care as well as review of records and direct review of films. All questions were answered. [id number]/[facility] #: [id number] [facility]
[2017-06-15 13:28] LABS: LAC APTT 24 sec (26 - 36); Lac DRVVT Screen Ratio 0.8 ratio (0.0 - 1.1); Prothrombin Time(LAC) 11.4 sec
[2017-06-15 15:49] LABS: Albumin 2.5 g/dL (3.4-4.7); Gamma Globulin 0.8 g/dL (0.6-1.6); Total Protein(PEP) 5.2 g/dL (6.3 - 7.9)
--- NOTE | 2017-06-16 04:53 | DS ---
CC: Deena Sullivan MD * HOSPITAL MEDICINE DISCHARGE SUMMARY: DATE OF ADMISSION: 06/12/17 DATE OF DISCHARGE: 06/15/17 PRIMARY CARE PHYSICIAN: Deena Sullivan MD ATTENDING PHYSICIAN: Vernon Monzon MD * (dictation provided by Mariella Rodriguez NP). PRIMARY DIAGNOSIS: Cerebrovascular accident, suspected cardioembolic source, status post tPA. SECONDARY DIAGNOSES: 1. History of transient ischemic attack. 2. History of carotid artery disease, status post carotid endarterectomy. 3. Hyperlipidemia. 4. History of tobacco abuse. 5. Anemia. 6. History of cataract extraction. 7. Hysterectomy. MEDICATIONS: 1. Plavix 75 mg p.o. daily. 2. Aspirin 81 mg p.o. daily. 3. Lipitor 80 mg p.o. q.p.m. HOSPITAL COURSE: Ms. Dan is an 81-year-old female with a past medical history of TIA, carotid artery disease, and tobacco use, who presented to the hospital on 06/12/17 with concern for facial droop and left-sided weakness. Please see the dictated H and P from Felipe Harrington for complete details. In brief, the patient noted the symptoms started around 2:30 with primarily weakness on the left side in the emergency room. She had a CT of the brain, which stated "no acute intracranial hemorrhage identified." The patient was administered tPA under the direction of Dr. Argueta. Ms. Dan was admitted to the hospital, her symptoms of weakness and dysarthria and left-sided weakness and facial droop all resolved completely. She had a head CTA, which showed "no hemodynamically significant stenosis at either carotid bulb, status post carotid endarterectomies. No focal filling defect in the arterial vasculature of the head and neck." She had a repeat CT of the brain on 06/12/17, which showed "again seen as loss of wadsworth matter differentiation at the right temporoparietal lobe similar in appearance to the previous CT of the brain. Since the prior CT, there has been enlargement of the hyperdense subdural area measuring 12 mm in greatest axial dimension, previously 10 mm on the prior CT examination, appeared this density was retained cortex as part of an evolving infarct, but the increase in size of the hyperattenuation now with 2 CTs to compare is concerning for extraaxial hemorrhage." Per Dr. Argueta's review of the study independently, he stated that it did not seem to show any significant change between the 2 CTs at the time of admission. The scan was reviewed by Dr. Augustin Bernal, Neurology at [place] who agreed there was likely retained cortex. The patient did go for an MRI of the brain, which showed "the constellation of imaging finding described above indicate a subacute to chronic right temporal lobe stroke, possibly with a small focal infarction at the posterior right subinsular cortex. There is no definite large extraaxial hemorrhage at this location or elsewhere. There does appear to be chronic intraparenchymal hemorrhage at the right temporal lobe and underlying white matter as indicated by the SWI imaging. Additional chronic findings are most consistent with diffuse chronic microvascular disease. Less likely etiology is inflammatory- demyelinating disease. These two etiologies can be differentiated with contrast- enhanced imaging if clinically warranted." Followup CT brain, status post tPA on 06/13/17 showed "there has been no discernible change in the appearance of the right temporal lobe encephalomalacia when compared to the most recent CT, 06/12/17." Finally, she did have a transthoracic echocardiogram. It showed no significant wall motion or valvular abnormalities and no evidence of a PFO. Ms. Dan is doing well today. She was seen in consultation by Dr. Archer, who again spoke with Dr. Augustin Bernal in [place] and plans are for patient to resume aspirin and Plavix. Based on the distribution and characteristics of the stroke, it is most suspicious for a cardioembolic source. Her telemetry monitoring here failed to show any evidence of atrial fibrillation. Recommendation is that she have loop monitoring outpatient. Ms. Dan received some labetalol initially for elevated blood pressure systolically to 200. Thereafter, she did show some bradycardia with junctional escape beats and junctional rhythm at times. I did review this with Dr. Almonte briefly who noted that she likely had some mild abnormalities with her sinus node, but with good backup function from their junctional rhythm. She is asymptomatic with this rhythm. In talking to Ms. Dan further, she states she has had episodes of lightheadedness at home which in the past she has always attributed to anemia. It is possible that this bradycardia that she is experiencing is causing her some symptoms, and again this would be another good reason for loop monitoring as noted above in hopes of identifying atrial fibrillation to prevent further stroke. Ms. Nordland is medically stable for discharge to home. She will be following up with Dr. Argueta as outpatient and also for consideration of loop monitoring. DISPOSITION: Home. DIET: Low fat. ACTIVITY: As tolerated. FOLLOWUP PLAN: Please follow up with Dr. Argueta in the next month. Continue to follow up after this acute CVA. TIME SPENT: Approximately 60 minutes was spent in the discharge of this patient , more than half the time was spent with her at the bedside reviewing the events leading up to this hospitalization, performing the physical examination, and reviewing the plan of care. MARIELLA RODRIGUEZ NP [id number]/[facility] #: [id number] [facility]
--- NOTE | 2017-06-16 07:15 | PN ---
CC: Dr. Zafar Argueta; Dr. Deena Sullivan; Dr. Augustin Bernal, [facility] * FOLLOWUP: DATE OF FOLLOWUP: 06/15/17 - ROOM #436 HISTORY OF PRESENT ILLNESS: Overnight, Ella Dan has had no new symptoms. She has felt well. She walked around the nurse's station with a walker and feels better with a walker. She did have some instability at baseline and used a cane. She has been monitored on telemetry and thus far no atrial fibrillation has been noted. No cardioembolic sources noted on echocardiogram. She denies any chest pain, chest pressure, or palpitations. PHYSICAL EXAMINATION: On examination today, most recent temperature was 97.9, pulse 70, respiratory rate 18, saturation 93%, and blood pressure 148/59. Her systolic blood pressure has varied between 81 and 148 during the last 24 hours. There was normal S1, S2. No murmur. No carotid bruits. Lungs are clear to auscultation. She was awake, alert, articulate, had normal language, function adequate, fund of knowledge. Full extraocular movements with no nystagmus, full morrow to confrontation. Her facial expression was symmetric. There was no dysarthria. She had normal bulk and tone. No pronator drift. Full strength in the upper and lower extremities with normal npvoeu-cj-xkne and heel- to-mckenzie movements. She was able to get out of bed on her own. She had increased stance when she walked and was slightly unstable. MEDICATIONS: MAR was reviewed. She has been put back on to aspirin, Plavix, and atorvastatin since this morning. IMPRESSION: Ella Dan is an 81-year-old woman status post tPA after acute onset of left-sided weakness in the setting of hypertension, hyperlipidemia, bilateral carotid endarterectomy, smoking, and previous event about 3 months ago with drooling and left facial weakness. Her course was complicated by presence of evidence of bleed, date unclear in the right temporal region, Radiology is reviewing. She, however, clinically has done well and at this point has an NIH stroke scale 0. After discussion with Dr. Bernal yesterday and with Dr. Argueta today, we will go back to treatment with Plavix, aspirin, and Lipitor. High dose of 80 mg consistent with treatment in the SAMMPRIS trial. I am very suspicious of thromboembolic versus cardioembolic source of stroke. Thus far, there has been no cardioembolic source of stroke. I would consider getting long-term monitoring as an outpatient. Dr. Bernal suggested obtaining P2Y12 assay as well as aspirin inhibition testing. Unfortunately, this is not available locally and admissions dean to [facility] a sample would need to be there within 4 hours and therefore cannot be sent. At this point, she does not want to drive to [facility] for testing. I have suggested followup with Dr. Argueta in 2 to 4 weeks for further discussion regarding etiology of stroke, potential long-term cardiac monitoring to look for cardioembolic source. Education was given regarding workup, test results, and potential further testing. Given her instability at baseline I would suggest walker and PT. Last night when walking around the nurses station, she was using a walker and we talked about how she felt. She felt more secure with the walker than she had with a cane. I have suggested physical therapy to work on balance and ambulation. A call has been placed to [facility] and they are working with Dr. Argueta to find a place and schedule for followup. Over 30 minutes were spent in direct patient care with additional phone calls to [facility] to hospitalist team and discussion with Social Work to coordinate care. All questions were answered. [id number]/[facility] #: [id number] [facility]
[2017-06-16 15:07] LABS: Phospholipid Ab IgG < 9.4 GPL; Phospholipid Ab IgM, S < 9.4 MPL
== END 2017-06-15 12:41 | disposition home health service (06) | DRG 61 ==
LOC: ED 15:46 → ICU 20:11 → MEDTELE 06-14 14:26
PROVIDERS: ADMIT Internal Medicine; ATTEND Internal Medicine
DX: I63.9 Cerebral infarction, unspecified (principal); I61.9 Nontraumatic intracerebral hemorrhage, unspecified; G81.94 Hemiplegia, unspecified affecting left nondominant side; R29.706 NIHSS score 6; R47.1 Dysarthria and anarthria; E78.5 Hyperlipidemia, unspecified; F17.210 Nicotine dependence, cigarettes, uncomplicated; I10 Essential (primary) hypertension; R00.1 Bradycardia, unspecified; I25.10 Atherosclerotic heart disease of native coronary artery without angina pectoris; Z66 Do not resuscitate; I44.0 Atrioventricular block, first degree; R29.810 Facial weakness; D64.9 Anemia, unspecified; R27.0 Ataxia, unspecified; G93.89 Other specified disorders of brain; I27.2 Other secondary pulmonary hypertension; Z86.73 Personal history of transient ischemic attack (TIA), and cerebral infarction without residual deficits; Z82.49 Family history of ischemic heart disease and other diseases of the circulatory system; Z83.3 Family history of diabetes mellitus; Z82.3 Family history of stroke; Z90.710 Acquired absence of both cervix and uterus; Z98.42 Cataract extraction status, left eye; Z98.41 Cataract extraction status, right eye; Z79.82 Long term (current) use of aspirin; Z79.02 Long term (current) use of antithrombotics/antiplatelets
CPT/HCPCS: 36415; 70450; 70496; 70498; 70551; 71010; 80053; 80061; 81003; 81015; 82232; 82272; 82607; 82746; 83036; 83540; 83550; 83605; 83735; 84155; 84165; 84439; 84443; 84484; 85014; 85018; 85025; 85045; 85610; 85613; 85652; 85730; 86147; 86850; 86900; 86901; 87086; 87641; 93005; 93306; 99406; A9270-GY; J2997; J3475; Q9967

== ENCOUNTER 2017-07-15 20:25 | Observation (INO) | payer MEDICARE ==
[2017-07-15 22:38] LABS: Hematocrit 24 % (35-47); Mean Corpuscular HGB Conc 33 g/dl (31-36); Mean Corpuscular Hemoglobin 32 pg (27-31); Mean Corpuscular Volume 98 fL (80-97); Mean Platelet Volume 7 um3 (7.4-10.4); Red Blood Count 2.47 10^6/ul (4.0-5.4); Red Cell Distribution Width 15 % (10.5-15); White Blood Count 6.8 10^3/ul (3.5-10.8)
--- NOTE | 2017-07-15 22:38 | ED ---
Cleopatra Reece Thomas, scribed for Cheyenne Brown MD on 07/15/17 at 2110 . Dizziness - HPI Summary HPI Summary: The pt is a 81 y/o F with a Hx of CVA 2 weeks ago and referred referred from [facility] c/o vertigo and instability on her feet that began today at 15:00. She had a CVA at [facility] two weeks ago and tPA was administered. She also describes that she has a sensation of head spinning as well. Pt additionally c/o instability on her feet, generalized weakness, photophobia, and GRANGER secondary to the photophobia. Pt denies vomiting, lateral weakness. PMHx: hypotension, CVA. PSHx: carotid endarterectomy. SHx: smoking. FHx: CVA. She is normally ambulatory. - History Of Current Complaint Chief Complaint: EDDizziness Stated Complaint: TIA SYMPTOMS Time Seen by Provider: 07/15/17 20:52 Hx Obtained From: Patient Timing: Constant Character: Head Spinning - and instability on feet Aggravating Factor(s): Nothing Alleviating Factor(s): Nothing Associated Signs And Symptoms: Positive: Other: - POS: instability on her feet, generalized weakness, photophobia, GRANGER secondary to the photophobia; NEG: lateral weakness. Negative: Vomiting - Allergies/Home Medications Allergies/Adverse Reactions: Allergies Allergy/AdvReac Type Severity Reaction Status Date / Time No Known Allergies Allergy Verified 07/15/17 21:52 Home Medications: Home Medications Multiple Vitamin [Multi Vitamin] 1 tab PO 07/15/17 [History] PMH/Surg Hx/FS Hx/Imm Hx Previously Healthy: No Endocrine/Hematology History: Reports: Hx Anemia Cardiovascular History: Denies: Hx Pacemaker/ICD Respiratory History: Reports: Hx Chronic Bronchitis Sensory History: Reports: Hx Contacts or Glasses Denies: Hx Hearing Aid Comment Only: Hx Cataracts - s/p bilateral cataract surgery Opthamlomology History: Reports: Hx Contacts or Glasses Comment Only: Hx Cataracts - s/p bilateral cataract surgery Neurological History: Reports: Hx CVA, Hx Transient Ischemic Attacks (TIA) Psychiatric History: Denies: Hx Panic Disorder - Surgical History Surgery Procedure, Year, and Place: carotid endarterectomy x2, unilateral salpingo-oopherectomy, bilateral cataract removal,tonsils,hysterectomy Hx Anesthesia Reactions: No Infectious Disease History: No Infectious Disease History: Denies: Hx Clostridium Difficile, Hx Hepatitis, Hx Human Immunodeficiency Virus (HIV), Hx of Known/Suspected MRSA, Hx Shingles, Hx Tuberculosis, History Other Infectious Disease, Traveled Outside the [place] in Last 30 Days - Family History Known Family History: Positive: Cardiac Disease, Diabetes, Other - stroke - father at 63; CHF Negative: Hypertension - Social History Alcohol Use: None Hx Substance Use: No Substance Use Type: Reports: None Hx Tobacco Use: No Smoking Status (MU): Current Every Day Smoker Type: Cigarettes Have You Smoked in the Last Year: Yes Review of Systems Negative: Fever Positive: Photophobia Negative: Vomiting Neurological: Other - POS: vertigo, instability on feet, head spinning Positive: Headache - secondary to photophobia, Weakness - generalized; NEG: any lateral weakness All Other Systems Reviewed And Are Negative: Yes Physical Exam Triage Information Reviewed: Yes Vital Signs On Initial Exam: Initial Vitals Temp Pulse Resp BP Pulse Ox 98.7 F 48 16 163/134 98 07/15/17 20:34 07/15/17 20:34 07/15/17 20:34 07/15/17 20:34 07/15/17 20:34 Vital Signs Reviewed: Yes Appearance: Positive: Well-Appearing, No Pain Distress Skin: Positive: Warm, Skin Color Reflects Adequate Perfusion, Dry Eyes: Positive: EOMI, RAMBO ENT: Positive: Pharynx normal, TMs normal Neck: Positive: Supple, Nontender Respiratory/Lung Sounds: Positive: Clear to Auscultation, Breath Sounds Present. Negative: Rales, Rhonchi, Wheezes Cardiovascular: Positive: RRR. Negative: Murmur, Rub, Other - NEG: gallop Abdomen Description: Positive: Nontender, Soft. Negative: Distended, Guarding, Other: - NEG: rebound Bowel Sounds: Positive: Present Musculoskeletal: Positive: Strength/ROM Intact Neurological: Positive: Sensory/Motor Intact, Alert, Oriented to Person Place, Time, CN Intact II-III Psychiatric: Positive: Affect/Mood Appropriate Diagnostics - Vital Signs Vital Signs Temp Pulse Resp BP Pulse Ox 07/15/17 20:44 98.7 F 50 16 164/134 95 07/15/17 20:34 98.7 F 48 16 163/134 98 - Laboratory Lab Statement: Any lab studies that have been ordered have been reviewed, and results considered in the medical decision making process. - EKG 21:45 Cardiac Rate: NL - 58 BPM EKG Interpretation: A-Fib. Nonspecific T-wave changes. EKG Comparison: No Significant Change - since 06/13/17. National Institutes Of Health - NIH Scale Level of Consciousness: Alert/Keenly Responsive Ask Patient the Month and His/Her Age: Both Correct Ask Pt to Open/Close Eyes and [place]/Release Non-Paretic Hand: Both Correctly Best Gaze (Only Horizontal Eye Movement): Normal Visual Field Testing: No Visual Loss Facial Paresis-Pt to Smile & Close Eyes or Grimace Symmetry: Normal/Symmetrical Motor Function - Right Arm: No Drift-Holds 10 Seconds Motor Function - Left Arm: Effort Against Windber Motor Function - Right Leg: Effort Against Windber Motor Function - Left Leg: Effort Against Windber Limb Ataxia-Must be out of Proportion to Weakness Present: Absent Sensory (Use Pinprick to Test Arms/Legs/Trunk/Face): Normal Best Language (Describe Picture, Name Items): No Aphasia Dysarthria (Read Several Words): Normal Extinction and Inattention: No Abnormality Total Score: 6 Dizzy Course/Dx - Course Course Of Treatment: 81 female recently admitted with tia/stroke symptoms requiring tpa, today she presented to [facility] with speech difficulties and vertigo, her exam there is reported to be neg and the symptoms had started at approx 3pm. On my exam she b/l lower ext weakness but her nih scale is otherwise neg. the case was discussed with Dr. Black for admission - Diagnoses Provider Diagnoses: TIA (transient ischemic attack) - Provider Notifications Discussed Care Of Patient With: Amilcar Black Time Discussed With Above Provider: 22:30 Instructed by Provider To: Other - I consulted with Dr. Black, heel finisher, who will admit the patient. Discharge - Discharge Plan Condition: Fair Disposition: ADMITTED TO [facility] Referrals: Deena Sullivan MD [Primary Care Provider] - The documentation as recorded by the Cleopatra storey Thomas accurately reflects the service I personally performed and the decisions made by me, Cheyenne Brown MD.
[2017-07-15 22:53] LABS: Albumin 3.1 g/dL (3.2-5.2); BUN/Creatinine Ratio 21.2 (8-20); Calcium 8.5 mg/dL (8.6-10.3); EGFR African American 110.8 (>60); EGFR Non-African American 86.2 (>60); Globulin 2.6 g/dL (2-4); Potassium 3.9 mmol/L (3.5-5.0); Total Bilirubin 0.3 mg/dL (0.2-1.0); Total Protein 5.7 g/dL (6.4-8.9)
[2017-07-15 22:54] LABS: Troponin I 0.01 ng/mL (<0.04)
[2017-07-16 03:49] LABS: Urine Bacteria Absent (Absent); Urine Bilirubin Negative (Negative); Urine Glucose Negative (Negative); Urine Nitrite Negative (Negative)
[2017-07-16] MEDS: Heparin VIAL(*) 5000 UNITS/ML VIAL (FIVE THOUSAND) SUBCUT SCH ×2 (05:35→13:04)
[2017-07-16] MEDS ORDERED: Aspirin Low Dose CHEW TAB* 81 MG PO SCH (09:00)
[2017-07-16] MEDS ORDERED: Clopidogrel TAB* 75 MG PO SCH (09:00)
--- NOTE | 2017-07-16 10:37 | HP ---
CC: Deena Sullivan MD. * HISTORY AND PHYSICAL: DATE OF ADMISSION: 07/15/17 CHIEF COMPLAINT: Dizziness. HISTORY OF PRESENT ILLNESS: The patient is an 81-year-old woman who presented to [facility] after stating she felt really dizzy with stumbling earlier this afternoon. She felt she had a strange feeling in her head, but not a headache. She had some slight double vision, little slurred speech, but no facial droop. She said both hands and feet felt weak. It is not similar to the symptoms that she had back in the end of May when she was diagnosed with cerebrovascular accident. The patient has; however, said she has not felt quite right since that incident. PAST MEDICAL HISTORY: The patient has a past medical history as noted for the cerebrovascular accident, status post tPA in 06/12/17, history of transient ischemic attack, carotid artery disease status post carotid endarterectomy, hyperlipidemia, tobacco abuse, anemia, cataract extraction, and hysterectomy. CURRENT MEDICATIONS: 1. Plavix 75 mg daily. 2. Lipitor 80 mg daily. 3. Aspirin 81 mg daily. 4. Multivitamin 1 tablet daily. ALLERGIES: She has no known drug allergies. FAMILY HISTORY: Mother had CHF, father had a CVA and OR. SOCIAL HISTORY: She smoked a half-pack a day for about 50 years, rarely drinks alcohol, no recreational drug use, surrogate decision maker is her step son Donald. REVIEW OF SYSTEMS: A 14-point review of systems was completed with the patient , all pertinent positive and negatives are in the history of present illness; otherwise is negative. PHYSICAL EXAMINATION GENERAL: Pleasant woman lying in bed, in no acute distress. VITAL SIGNS: Blood pressure 163/84, pulse oxygenation 92% on room air, respiratory rate 19 breaths per minute, heart rate 62 beats per minute, temperature is 98.7 degrees. HEENT: Normocephalic and atraumatic. Pupils are equal, round, and reactive to light. Moist mucous membranes. NECK: Supple. No JVD, bruits, palpable thyroid, or lymphadenopathy. CHEST: Clear to auscultation and percussion bilaterally. CARDIOVASCULAR: S1 and S2 appreciated. Regular, rate, and rhythm. ABDOMEN: Positive bowel sounds in all 4 quadrants, soft, nontender, and nondistended. EXTREMITIES: No cyanosis, clubbing, or edema. +2 peripheral pulses bilaterally. NEUROLOGIC: Alert and oriented x3, moves all extremities. Negative pronator drift. Good finger to nose. 5/5 motor strength in her upper and lower extremities. No evidence of facial droop. Cranial nerves II through XII appear intact. LABORATORY DATA: White count 6.8, hemoglobin 8.0, hematocrit 24, platelets are 333. Sodium is 132, potassium 3.9, chloride 101, CO2 of 26, BUN 14, creatinine 0.6, glucose is 123. INR 1.02. EKG shows sinus bradycardia at a rate of 58 beats per minute. She does have a dropped beat. She has normal axis. No acute ST or T- wave changes. Prolonged QT. ASSESSMENT AND PLAN: 1. Questionable transient ischemic attack. I doubt this has happened. The patient's symptoms are not focal at all. They are not consistent with what she had before. I will get an MRI in the morning. I will check urinalysis. I think it is likely a different etiology than a stroke. I will do neuro checks q.4 hours; however. May benefit from neurology consult. 2. Anemia. The patient is stable with the H and H around 8. It has been similar to hemoglobin and hematocrit she had before. 3. Tobacco abuse. Encouraged discontinue tobacco. Denies need for nicotine replacement. 4. FEN, regular diet. 5. DVT prophylaxis. Heparin subcu. 6. Finally the patient is a DNR. TIME SPENT: Over 75 minutes were spent on this H and P, more than 40 minutes of which was spent in direct qtkd-fa-itpt contact with the patient evaluation, physical exam, counselling, and coordination of care. [id number]/[facility] #: [id number] ALDAIR
--- NOTE | 2017-07-16 12:15 | RAD ---
HISTORY: Lower extremity weakness COMPARISONS: June 13, 2017 TECHNIQUE: The following sequences were obtained of the head: Sagittal T1-weighted images, axial T2-weighted images, axial FLAIR images, axial susceptibility weighted images, axial T1-weighted images. Additionally, axial diffusion-weighted images were obtained with calculated apparent diffusion coefficients. FINDINGS: HEMORRHAGE/INFARCT: There is no hemorrhage or acute infarct. MASSES/SHIFT: There is no mass or shift. EXTRA-AXIAL SPACES/MENINGES: There are no extra-axial fluid collections. SULCI AND VENTRICLES: There is diffuse and proportional enlargement of the sulci and ventricles. CEREBRUM: Again noted is right temporal encephalomalacia with evidence of chronic hemorrhage. There is multifocal elevated T2/FLAIR signal in the periventricular and subcortical white matter. BRAINSTEM: There is elevated T2/FLAIR signal within the pontine white matter. CEREBELLUM: There are no focal parenchymal abnormalities. The cerebellar tonsils are normal in size and position. SELLA: The sella is normal. PINEAL: The pineal region is clear. CP ANGLE/TEMPORAL BONES: The labyrinthine structures are grossly normal. VESSELS: Normal flow-voids are noted within the visualized vertebral vasculature. DIFFUSION ABNORMALITIES: There are no diffusion abnormalities. PARANASAL SINUSES/MASTOIDS: The paranasal sinuses are clear. ORBITS: The orbits are unremarkable. BONES AND SOFT TISSUE: No bone or soft tissue abnormalities are noted. OTHER: None IMPRESSION: STABLE CHRONIC CHANGES. NO RESTRICTED DIFFUSION TO SUGGEST ACUTE INFARCT.
[2017-07-16 16:38] VITALS: BP 171/52
[2017-07-16] MEDS ORDERED: Atorvastatin* 80 MG TAB PO SCH (17:00)
--- NOTE | 2017-07-17 01:43 | CONS ---
CC: Dr. Deena Sullivan NEUROLOGY CONSULTATION: DATE OF CONSULT: 07/16/17 REFERRING PHYSICIAN: Dr. Monzon. LOCATION: She is an inpatient in room 445. CHIEF COMPLAINT: Weakness, dizziness. HISTORY OF PRESENT ILLNESS: Ella Dan is an 81-year-old right-handed woman known to me from [facility] evaluation when she presented on 06/12/17 with weakness on her left side with slurred speech. A T eleneurology consultation was carried out by Dr. Osman Bernal and tPA was administered. Her sympt oms resolved. She had an MRI of the brain, subsequently revealed a very tiny, acute infarction in t he right posterior insula. This is also more subacute or chronic infarction in the right temporal l obe. She was discharged on Plavix. I saw her in my office a couple of weeks ago and she felt gener ally weak and unsteady, but had no new neurological symptoms. Yesterday, she was at home and she felt very weak as though she might pass out. She ended up sitting down on a bench in a foyer. It is not clear if she lost consciousness totally or not, but she luis f ined on the bench. She presented to [facility] with complaints of dizziness and was transferred here. She had an MRI scan of the brain earlier today, which did not reveal any new infarctions. PAST MEDICAL HISTORY: Notable for colon mass, probably carcinoma, for which she has refused further evaluation. She has anemia and had a bone marrow biopsy in [place], I do not have the results of. She has noted double vision, which it is unclear when it started that she cannot really remember a nd she feels her memory is poor. The double vision comes and goes. MEDICATIONS AT HOME: Consist of: 1. Plavix 75 mg p.o. q. day. 2. Lipitor 80 mg p.o. q. day. 3. Aspirin 81 mg p.o. q. day. 4. Multivitamins. SOCIAL HISTORY: She uses a walker at home. She does not smoke, but did smoke for 50-pack years in the past. She does not drink alcohol. PHYSICAL EXAM: She is thin and pale. Temperature 97.6 orally, blood pressure 118/58, heart rate is in the 40's and 50's and regular. I do not hear any murmurs. Oxygen saturation is 100% on room air . Lungs are clear. Heart is in a regular rhythm without murmurs. Carotid pulses are present, there a re no bruits. Oral mucosa is moist. There is no oral trauma. Neurological Exam: Pupils react equally from about 3 to 2 mm. Eye movements are full. There is no nystagmus or diplopia on testing. Facial musculature is symmetric. Facial sensation to light touc h is symmetric. Palate and tongue appear normal and speech is clear without dysarthria. Motor exam reveals mild hip flexor weakness bilaterally. She has mild diffuse weakness. There is n o spasticity or rigidity. There is no rest tremor. Finger-to- nose is normal. Gait is very cautious and slow and unsteady with a walker. She is alert, but a poor historian. She has a poor recollection of recent historical details. DIAGNOSTIC STUDIES/LAB DATA: Includes MRI of the brain described above. Her admitting chemistry is notable for a sodium of 132 and otherwise unremarkable. Albumin is border line low at 3.1 and calcium at 8.5. Liver enzymes are normal. Hemoglobin is low at 8.0, hematocrit 24%, white blood cell count is normal, and platelet count 33,00 0. Iron level is low at 11 and iron percent saturation is 4%. IMPRESSION AND PLAN: Generalized weakness. There is no evidence of a recurrent cerebrovascular jose nt. She is quite anemic, but looks pretty stable overall, so I am not sure what is changed from a c ouple of weeks ago. She may be depressed dealing the diagnosis of possible colon cancer. She is iro n deficient, she might benefit from at least iron supplementation if not transfusion. I will discuss my impression with Dr. Monzon. [id number]/[facility] #: [id number]
--- NOTE | 2017-07-17 06:07 | DS ---
CC: Dr. Deena Sullivan, [place] DISCHARGE SUMMARY: DATE OF ADMISSION: DATE OF DISCHARGE: 07/16/17 HISTORY OF PRESENT ILLNESS: This 81-year-old woman presented complaining of dizziness. Her complai nts were not always very consistent. She is complaining of some dizziness. She said she had passed out sometime at home. She also complained of double vision at times. She was concerned about her anemia as well, although she had been evaluated for this by her [employer]ill[employer] vessel operator in [place]. After her son came, she appeared less confused and was more focused on going home. In view of her history of recent TPA for stroke, she had an MRI scan. This actually showed no infar ct or hemorrhage and was very reassuring. She was seen in consultation by Dr. Argueta, who also cou ld not find any focal lesions or acute changes. He did not recommend any change in her therapy. The patient states she takes iron tablets at home, although this was not on her med rec. I told her to continue taking iron tablets. She probably should follow up with her salmon gillnet vessel operator at times. FINAL DIAGNOSES: 1. Dizziness. 2. Anemia. 3. Question of possible colon cancer. DISCHARGE MEDICATIONS: 1. Clopidogrel 75 mg daily. 2. Aspirin 81 mg daily. 3. Atorvastatin 80 mg daily at 5 p.m. 4. Multivitamin 1 daily. [id number]/[facility] #: [id number]
== END 2017-07-16 18:46 | disposition home or self-care (01) ==
LOC: ED 20:25 → MEDTELE 23:13
PROVIDERS: ADMIT Internal Medicine; ATTEND Internal Medicine
DX: R42 Dizziness and giddiness (principal); D64.9 Anemia, unspecified; Z79.01 Long term (current) use of anticoagulants; Z87.891 Personal history of nicotine dependence; Z86.73 Personal history of transient ischemic attack (TIA), and cerebral infarction without residual deficits; R26.81 Unsteadiness on feet; Z79.899 Other long term (current) drug therapy
CPT/HCPCS: 36415; 70551; 80053; 81003; 81015; 83605; 84484; 85025; 85610; 87086; 93005; 96372; 99284; A9270-GY; G0378; J1644